=== PATIENT | female | born 1950 | race Caucasian/White ===

== ENCOUNTER 2024-11-21 15:25 | Emergency (ER) | payer MEDICARE, OTHER, SELFPAY ==
[2024-11-21 15:33] VITALS: BP 137/41; PULSE 69; RESP 19; TEMP 36.6; O2SAT 98; BMI 21.5
--- NOTE | 2024-11-21 15:38 | ED.GENADULT ---
HPI - General Adult General Chief complaint: Psychiatric Symptoms Stated complaint: Crisis Time Seen by Provider: 11/21/24 16:41 History of Present Illness ED Provider: Stevo Booth MD HPI narrative: This is a 74-year-old female with dementia and possibly underlying psychiatric disorder on Depakote and Namenda among other medications for medical issues. Her friend brought her in after she came to the house the friend called her over for help she said she was not feeling well. Friend tells me patient had a recent hospitalization and discharge to rehab, she went to [facility], for behavioral disturbance she had stopped taking all of her medications and then 1 day ?took them all?. Patient denies suicidality she does not recall that episode very well. She is been home but has not been well with poor sleep unsure whether she is taking her medications regularly. Related Data Home Medications ?Medication ?Instructions ?Recorded ?Confirmed amlodipine 5 mg tablet 5 mg PO DAILY 11/21/24 11/21/24 ascorbic acid (vitamin C) 500 mg 500 mg PO BID 11/21/24 11/21/24 tablet (Vitamin C) aspirin 81 mg chewable tablet 1 tab PO DAILY 11/21/24 11/21/24 brimonidine 0.2 % eye drops 1 drp ophthalmic (eye) BID 11/21/24 11/21/24 cholecalciferol (vitamin D3) 50 50 mcg PO DAILY 11/21/24 11/21/24 mcg (2,000 unit) tablet divalproex 250 mg tablet,extended 250 mg PO BEDTIME 11/21/24 11/21/24 release 24 hr folic acid 1 mg tablet 1 mg PO QAM 11/21/24 11/21/24 latanoprost 0.005 % eye drops 1 drp ophthalmic (eye) BEDTIME 11/21/24 11/21/24 meclizine 12.5 mg tablet 12.5 mg PO Q8H 11/21/24 11/21/24 memantine 10 mg tablet 10 mg PO BID 11/21/24 11/21/24 methotrexate sodium 2.5 mg tablet 12.5 mg PO QWEEK 11/21/24 11/21/24 omega-3 fatty acids 1,000 mg 1,000 mg PO BID 11/21/24 11/21/24 capsule polyethylene glycol 3350 17 gram 17 g PO DAILY 11/21/24 11/21/24 oral powder packet (Miralax) rosuvastatin 20 mg tablet 20 mg PO DAILY 11/21/24 11/21/24 Previous Rx's ?Medication ?Instructions ?Recorded risperidone 0.25 mg tablet 0.25 mg PO BID #60 tabs 11/25/24 Allergies Allergy/AdvReac Type Severity Reaction Status Date / Time meperidine [Demerol] Allergy Unknown Unknown Verified 11/21/24 15:39 morphine [MORPHINE] Allergy Unknown UNKNOWN Verified 11/21/24 15:39 oxycodone [Percocet] Allergy Unknown Unknown Verified 11/21/24 15:39 Sulfa (Sulfonamide Allergy Unknown UNKNOWN Verified 11/21/24 15:39 Antibiotics) [SULFA(SULFONAMIDE ANTIBIOTICS)] prednisone [PREDNISONE] AdvReac Unknown UNKNOWN Verified 11/21/24 15:39 Physical Exam ED Vital Signs: Vital Signs - 24 hr 11/24/24 22:00 11/25/24 06:13 11/25/24 06:21 Temperature 97.6 F 97.5 F Pulse Rate 67 62 61 Respiratory Rate 14 14 Blood Pressure 112/33 L 140/50 H 140/46 H Pulse Oximetry 96 97 Oxygen Delivery Method Room Air Room Air 11/25/24 06:21 11/25/24 06:21 11/25/24 13:18 Temperature 97.9 F Pulse Rate 63 69 72 Respiratory Rate 18 Blood Pressure 151/57 H 155/55 H 146/82 H Pulse Oximetry 98 Oxygen Delivery Method Room Air BMI result Body Mass Index 21.5 Const Other: EXAM: Gen: Alert, awake, well appearing, well hydrated. Head: Atraumatic Eyes: Anicteric, Normal conjunctiva. ENT: Moist mucosa, no pallor. ? Neck: Supple. Skin: ?No observable rash or bruising on exposed or examined skin Respiratory: Breathing comfortably, No distress.Clear to auscultation bilaterally, symmetric chest expansion, No wheeze, rales, ronchi. Cardiovascular: Regular rate and rhythm. No murmurs or rub. Well perfused periphery, warm extremities. No edema. ? Abdominal: No FOCAL TENDERNESS. Soft, no objective distension. No palpable masses or obvious organomegaly. ?No guarding, no rebound tenderness or other peritoneal findings. : No flank tenderness. Neuro: Alert. Gross movement of all extremities intact. ?Cranial nerves 2-12 intact. No motor deficits Psych: Calm. Cooperative. Patient acknowledges agitated behavior at home breaking things she says ?I do not know why? when asked why she did that. She denies SI or HI. She denies feeling sad or using any drugs or alcohol. MSK: No grossly visible deformity. Vital signs: See flowsheet Course Course Course Narrative: RME, this is a rapid medical exam performed by Willy Hendricks please refer to primary provider for complete H&P- 74 year old female with a history of dementia presents for evaluation of depression, agitation. She presents with a friend who reports she was destructive in the house this morning and shattering glass. The patient had a recent admission at [facility]. She has been off of her meds recently. The patient denies attempting to harm herself today. Reevaluation(s) Reevaluation #1: Time: 06:13 Date: 11/22/24 Provider: Sunil Cullen MD Patient in physician observation for psychiatric evaluation.? Patient has been in the emergency department for 14 hours. Patient has been seen by the care team and is waiting for psychiatric consult No acute events reported overnight. No current complaints. VS stable.? Patient is in bed search status/pending CARE team evaluation. Patient's medications were reconciled and I ordered the patient's outpatient regimen. Will continue to monitor. Reevaluation #2: Time: 06:17 Date: 11/23/24 Provider: Sunil Cullen MD Patient in physician observation for psychiatric evaluation.? Patient has been in the emergency department for 38 hours. Patient was seen yesterday by psychiatric nurse practitioner Elle Kurtz and diagnosed with major neurocognitive disorder and unspecified dementia. She ordered 0T assessment including MOC and ACL to assess patient's safety to live independently in the community. Patient was started on risperidone 0.25 mg p.o. b.i.d. for paranoid delusions/suspicions. Nurse practitioner Jerardo felt that the patient did not require [facility] psychiatric admission at this time. No acute events reported overnight. No current complaints. VS stable. We will await assessments. Will continue to monitor. Reevaluation #3: Time: 10:50 Date: 11/23/24 Provider: Sunil Cullen MD Patient in physician observation for psychiatric evaluation.? Patient was watching television and stood up and felt dizzy. Patient's blood pressure was 85/36. Patient had orthostatic blood pressures done: Lying: BP 100/36, heart rate 61 Sitting: BP 91/35, heart rate 63 Standing: BP 83/48, heart rate 62 The patient did not have any dizziness during her orthostatic blood pressures. Patient had 17 point drop in her systolic blood pressure but no change in her heart rate. At this time I doubt that she is orthostatic. The patient was encouraged to increase her fluid intake. Nurse reports that the patient is walking around without any difficulty. We will continue to monitor. Time: 07:23 Date: 11/24/24 Provider: Eva Paredes, DO Patient in physician observation for case management needs. No acute events reported overnight.? No current issues or complaints. VS stable this AM. Patient is pending CM eval. Will continue to monitor. Time: 11:21 Date: 11/25/24 Provider: MARLYN Sanchez Patient in physician observation for case management needs. No acute events reported overnight.? No current issues or complaints. VS stable. Case management on board and patient has been evaluated by psych, MOCA and ACL completed. Her son is coming in today to further discuss options for home care and agencies. Will continue to monitor. Time: 12:35 Date: 11/25/24 Provider: MARLYN Sanchez Physician observation ended at 12:35 Patient is being discharged home with her son. Her son is off of work for the next 1 week and will stay with her until he ranges additional care at home. Her vital signs are stable and she does not require medical admission to the hospital at this time. She is stable for discharge home with family. Medications Administered Discontinued Medications Generic Name Dose Route Start Last Admin Trade Name Josephq PRN Reason Stop Dose Admin Amlodipine Besylate 5 mg 11/22/24 09:00 11/24/24 09:08 Amlodipine Besylate 5 Mg Tablet PO Not Given DAILY LOWELL Protocol Ascorbic Acid 500 mg 11/22/24 09:11/25/24 10:35 Ascorbic Acid 500 Mg Tablet PO 500 mg BID LOWELL Administration Aspirin 81 mg 11/22/24 09:00 11/25/24 10:35 Aspirin 81 Mg Tab.Chew PO 81 mg DAILY LOWELL Administration Atorvastatin Calcium 80 mg 11/22/24 09:00 11/25/24 10:35 Atorvastatin Calcium 80 Mg Tablet PO 80 mg DAILY LOWELL Administration Brimonidine Tartrate 1 drop 11/22/24 09:00 11/25/24 10:35 Brimonidine Tartrate 0.2% Oph 5 Ml Bottle EYE-BOTH 1 drop BID LOWELL Administration Diphenhydramine HCl 25 mg 11/24/24 01:15 11/24/24 04:16 Diphenhydramine Hcl 25 Mg Capsule PO 11/24/24 01:16 Not Given ONCE ONE Divalproex Sodium 250 mg 11/22/24 21:00 11/24/24 21:27 Divalproex Sodium Er 250 Mg Tab.Er.24h PO 250 mg BEDTIME LOWELL Administration Folic Acid 1 mg 11/22/24 09:00 11/25/24 10:35 Folic Acid 1 Mg Tablet PO 1 mg DAILY LOWELL Administration Latanoprost 1 drop 11/22/24 21:00 11/24/24 22:17 Latanoprost 0.005 % Ophth Domonique 2.5 Ml Drops EYE-BOTH 1 drop BEDTIME LOWELL Administration Lorazepam 1 mg 11/24/24 01:28 11/24/24 04:16 Lorazepam 1 Mg Tablet PO 11/24/24 01:29 Not Given ONCE ONE Meclizine HCl 12.5 mg 11/22/24 07:00 11/24/24 09:15 Meclizine Hcl 12.5 Mg Tablet PO 12.5 mg Q8H LOWELL Administration Memantine 10 mg 11/22/24 09:00 11/25/24 10:35 Memantine Hcl 10 Mg Tablet PO 10 mg BID LOWELL Administration Methotrexate 12.5 mg 11/22/24 09:00 11/22/24 09:05 Methotrexate Sodium 2.5 Mg Tablet PO 12.5 mg Tu LOWELL Administration Polyethylene Glycol 17 gm 11/22/24 09:00 11/25/24 10:34 Polyethylene Glycol 3350 17 Gm Powd.Pack PO 17 gm DAILY LOWELL Administration Risperidone 0.25 mg 11/22/24 16:45 11/22/24 19:33 Risperidone 0.25 Mg Tablet PO Not Given BID LOWELL Risperidone 0.25 mg 11/22/24 21:00 11/25/24 12:11 Risperidone 0.5 Mg Tablet PO Not Given BID LOWELL Vitamin D 50 mcg 11/22/24 09:00 11/25/24 10:35 Cholecalciferol (Vitamin D3) 25 Mcg Tablet PO 50 mcg DAILY LOWELL Administration Medical Decision Making Medical Decision Making [facility] Narrative: 74-year-old female who presents after calling her friend who brought her in for evaluation. She told the friend and the friend confirmed that she had smashed windows in her home with a hammer for unclear reason. Patient recently had an evaluation was sent to rehab after an overdose that was later determined or felt not to be a suicidal attempt. She is had more erratic behavior recently. No SI or HI. She is no external signs of trauma and she is asymptomatic and otherwise comfortable and cooperative and calm here. She is more interested in discussing dinner then elaborating on her mental health. My personal impression is that the patient likely has cognitive decline and/or formal dementia as well as underlying psychiatric disorder. I do not feel she is safe at home at this point with her erratic and occasionally violent behavior and destructive behavior. I see no evidence of injury or acute medical emergency or actionable findings on her workup thus far Defer to crisis and Psychiatry for consultation Consult Healthcare Provider Management of the patient was discussed with: Behavioral Health Provider (Crisis we will consult psychiatry) Lab Data [facility] Lab Attestation statement: I reviewed the patient's lab results. 11/21/24 21:05 11/22/24 20:02 Labs: Lab Results 11/21/24 11/21/24 11/22/24 Range/Units 16:48 21:05 20:02 WBC 9.2 (4.8-10.8) X10*3/uL RBC 3.74 L (4.20-5.50) X10*6/uL Hgb 12.1 (12.0-16.0) g/dl Hct 34.8 L (37.0-47.0) % MCV 93.0 (80.0-98.0) fL MCH 32.4 (27.0-33.0) pg MCHC 34.8 (31.0-35.0) g/dl RDW 17.3 H (11.0-16.0) % Plt Count 307 (160-400) X10*3/uL MPV 9.2 L (9.4-12.3) fL Immature Gran % (Auto) 0.3 (0.0-0.4) % Neut % (Auto) 65.8 (45-73) % Lymph % (Auto) 24.3 (20-40) % [place] % (Auto) 7.0 (2-11) % Eos % (Auto) 1.3 (0-4) % Baso % (Auto) 1.3 (0-2) % Lymph # (Auto) 2.2 (1.2-4.9) X10*3/uL Hardin # (Auto) 0.6 (0.1-1.2) X10*3/uL Eos # (Auto) 0.1 (0.0-0.4) X10*3/uL Baso # (Auto) 0.1 (0.0-0.2) X10*3/uL Abs Immat Gran (auto) 0.03 (0.00-0.03) X10*3/uL Absolute Neuts (auto) 6.0 (2.0-8.3) x10*3/uL Absolute Nucleated RBC 0.000 (0.0-0.012) X10*3/uL Nucleated RBC % (auto) 0.0 (0.0-0.2) /100WBC Sodium 143 143 (135-145) mmol/L Potassium 3.9 3.9 (3.3-5.1) mmol/L Chloride 107 106 (96-108) mmol/L Carbon Dioxide 28 29 (22-29) mmol/L Anion Gap 12 12 (12-20) BUN 21 H 25 H (9-16) mg/dL Creatinine 0.81 0.73 (0.5-1.4) mg/dL Estim Creat Clear Calc 36.0 40.0 Estimated GFR > 60 > 60 Random Glucose 121 H 109 (60-115) mg/dL Calcium 8.9 9.5 D (8.4-10.2) mg/dL Total Bilirubin 0.2 0.3 (0.0-1.0) mg/dL AST 36 H 29 (5-31) U/L ALT 89 H 75 H (0-31) U/L Alkaline Phosphatase 64 65 (39-117) U/L Ammonia 25 (13-55) umol/L Total Protein 5.9 L 6.4 L (6.5-8.0) g/dL Albumin 4.0 4.3 (3.5-5.0) g/dL Urine Color Yellow Urine Appearance Clear Urine pH 8.5 (5.0-9.0) Ur Specific [place] <= 1.005 (1.005-1.025) Urine Protein Negative (Neg-Trace) mg/dL Urine Glucose (UA) Negative (Negative) mg/dL Urine Ketones Negative (Negative) mg/dL Urine Blood Negative (Negative) Urine Nitrite Negative (Negative) Ur Leukocyte Esterase Negative (Negative) Urine RBC 0-2 (0-2) /HPF Urine WBC 0-5 (0-5) /HPF Ur Squamous Epith Cells 0-2 (0-2) /HPF Urine Bacteria None Seen (None Seen) Hyaline Casts 0-2 (0-2) /LPF Salicylates < 5.0 L (15-30) mg/dL Urine Opiates Screen Not Detected (Not Detect) Ur Buprenorphine Scrn Not Detected (Not Detect) ng/mL Ur Oxycodone Screen Not Detected (Not Detect) ng/mL Urine Methadone Screen Not Detected (Not Detect) ng/mL Urine Fentanyl Screen Not Detected (Not Detect) Acetaminophen < 3 (<30) mcg/mL Ur Barbiturates Screen Not Detected (Not Detect) Ur Phencyclidine Scrn Not Detected (Not Detect) Ur Amphetamines Screen Not Detected (Not Detect) U Benzodiazepines Scrn Not Detected (Not Detect) Urine Cocaine Screen Not Detected (Not Detect) U Marijuana (THC) Screen Not Detected (Not Detect) Ethyl Alcohol < 10 mg/dL Discharge Plan Discharge Clinical Impression: Major neurocognitive disorder Patient Disposition: Home, Self-Care Instructions: Dementia (ED) Additional Instructions: Lab workup in the ER was unremarkable. Continue taking all your medications as prescribed. Per psychiatry recommendations we are adding risperidone 0.25 mg 2 times a day for suspiciousness and paranoia. This has been sent to your pharmacy. Follow-up with your doctor as soon as possible If you develop new or worsening symptoms call 911 or come back to the ER for further evaluation. Prescriptions: New risperidone 0.25 mg tablet 0.25 mg PO BID Qty: 60 0RF No Action amlodipine 5 mg tablet 5 mg PO DAILY aspirin 81 mg tablet,chewable 1 tab PO DAILY folic acid 1 mg tablet 1 mg PO QAM latanoprost 0.005 % drops 1 drp ophthalmic (eye) BEDTIME meclizine 12.5 mg tablet 12.5 mg PO Q8H memantine 10 mg tablet 10 mg PO BID methotrexate sodium 2.5 mg tablet 12.5 mg PO QWEEK rosuvastatin 20 mg tablet 20 mg PO DAILY divalproex 250 mg tablet extended release 24 hr 250 mg PO BEDTIME cholecalciferol (vitamin D3) 50 mcg (2,000 unit) Tablet 50 mcg PO DAILY polyethylene glycol 3350 [Miralax] 17 gram Powder In Packet 17 g PO DAILY brimonidine 0.2 % Drops 1 drp OPHTHALMIC (EYE) BID Rx Instructions: administer approximately 8 hours apart ascorbic acid (vitamin C) [Vitamin C] 500 mg Tablet 500 mg PO BID omega-3 fatty acids 1,000 mg Capsule 1,000 mg PO BID Referrals: Suzanne Benjamin [Outside] Interventions: [place]-Suicide Risk Severity Scale Last Done: 11/24/24 20:00 ED Discharge Assessment Last Done: 11/25/24 13:18 Discharge Date/Time: 11/25/24 13:26 Print Language: Frisian
[2024-11-21 16:32] VITALS: BP 149/78; PULSE 69; RESP 16; TEMP 36.5; O2SAT 98
--- NOTE | 2024-11-21 16:39 | PC.NURSE ---
Patient is a 74 year old female with a history of dementia presents for evaluation of depression, agitation. She presents with a friend who reports she was destructive in the house this morning and shattering glass. The patient had a recent admission at [facility]. and has been off of her meds. The patient denies attempting to harm herself today. Patient is alert and oriented. Patient is unsure why she broke the windows in her home. Communication sl disorganized. Respirations even and non-labored. Abdomen soft, non-tender with positive bowel sounds. Positive pedal pulses with no edema.
[2024-11-21 17:02] LABS: Appearance Urine Clear; Color Urine Yellow; Glucose Urine UA Negative (Negative); Leukocyte Esterase Urine Negative (Negative); Nitrite Urine Negative (Negative); PH 8.5 (5.0-9.0); Specific Gravity - Urine <= 1.005 (1.005-1.025); Urine Blood Negative (Negative); Urine Ketones Negative (Negative); Urine Protein Negative (Neg-Trace)
[2024-11-21 17:05] LABS: Bacteria Urine None Seen (None Seen); Hyaline Casts Urine 0-2 /LPF (0-2); RBC Urine 0-2 /HPF (0-2); Squamous Epithelial Cell Urine 0-2 /HPF (0-2); WBC Urine 0-5 /HPF (0-5)
[2024-11-21 17:11] LABS: Amphetamine Screen Urine Not Detected (Not Detect); Barbiturates, Urine Not Detected (Not Detect); Benzodiazepines Screen Urine Not Detected (Not Detect); Buprenorphine Scr Not Detected (Not Detect); Cannabinoid Screen Urine Not Detected (Not Detect); Cocaine Screen Urine Not Detected (Not Detect); Fentanyl, urine Not Detected (Not Detect); Methadone Screen, Urine Not Detected (Not Detect); Opiate Screen Urine Not Detected (Not Detect); Oxycodone Screen Urine Not Detected (Not Detect); Phencyclidine Screen Urine Not Detected (Not Detect)
--- NOTE | 2024-11-21 17:44 | PC.NURSE ---
Care team at the bedside
--- OUTSIDE RECORDS SUMMARY | 2024-11-21 17:44 | XMS_ITS | Patient Health Record ---
Author Organization [facility] [address] Address [address] [place] [address] Care Team Providers Care Yardage Caller Name Role Phone DRISS TURK Unavailable [phone] Allergies Allergen (clinical drug ingredient) Drug/Non Drug Allergy documented on EMR Reaction Allergy Type Onset Date Status prednisone Prednisone Unknown Drug Allergy Activ e Substance with sulfonamide structure and antibacterial mechanism of action (substance) Sulfa Antibiotics Unknown Drug Allergy Active Results Component Value Reference Range Notes Crystal John LP Default Reviewed date:05/25/2024 08:07:37 AM Interpretation: Performing Lab:[facility], [address] [facility], Phone - [phone], Director - Jay Notes/Report: Crystal John LP Default A hand-written panel/profile was received from your office. In accordance with the [facility] Ambiguous Test Code Policy dated December 2002, we have completed your order by using the closest currently or formerly recognized AMA panel. We have assigned Lipid Panel, Test Code #[id number] to this request. If this is not the testing you wished to receive on this specimen, please contact the [facility] Client Inquiry/Technical Services Department to clarify the test order. We appreciate your business. CBC/Diff Ambiguous Default Reviewed date:05/25/2024 08:07:37 AM Interpretation: Performing Lab:[facility], [address] [facility], [place], Phone - [phone], Director - Jay Notes/Report: WBC 8.3 3.4-10.8 x10E3/uL RBC 4.74 3.77-5.28 x10E6/uL Hemoglobin 15.4 11.1-15.9 g/dL Hematocrit 46.8 34.0-46.6 % MCV 99 79-97 fL MCH 32.5 26.6-33.0 pg MCHC 32.9 31.5-35.7 g/dL RDW 13.6 11.7-15.4 % Platelets 258 150-450 x10E3/uL Neutrophils 69 Not Estab. % Lymphs 23 Not Estab. % Monocytes 6 Not Estab. % Eos 1 Not Estab. % Basos 1 Not Estab. % Neutrophils (Absolute) 5.8 1.4-7.0 x10E3/uL Lymphs (Absolute) 1.9 0.7-3.1 x10E3/uL Monocytes(Absolute) 0.5 0.1-0.9 x10E3/uL Eos (Absolute) 0.1 0.0-0.4 x10E3/uL Baso (Absolute) 0.1 0.0-0.2 x10E3/uL Immature Granulocytes 0 Not Estab. % Immature Grans (Abs) 0.0 0.0-0.1 x10E3/uL Hematology Comments: A hand-written panel/profile was received from your office. In accordance with the [facility] Ambiguous Test Code Policy dated December 2002, we have assigned CBC with Differential/Platelet, Test Code #[id number] to this request. If this is not the testing you wished to receive on this specimen, please contact the [facility] Client Inquiry/ Technical Services Department to clarify the test order. We appreciate your business. Comp. Metabolic Panel ([id number] Reviewed date:05/25/2024 08:05:48 AM Interpretation: Performing Lab:[facility], [address], [place], Phone - [phone], Director - Jay Notes/Report: Glucose 109 70-99 mg/dL BUN 19 8-27 mg/dL Creatinine 0.89 0.57-1.00 mg/dL eGFR 67 >59 mL/min/1.73 BUN/Creatinine Ratio 21 12-28 Sodium 141 134-144 mmol/L Potassium 4.6 3.5-5.2 mmol/L Chloride 102 96-106 mmol/L Carbon Dioxide, Total 22 20-29 mmol/L Calcium 9.8 8.7-10.3 mg/dL Protein, Total 6.6 6.0-8.5 g/dL Albumin 4.4 3.8-4.8 g/dL Globulin, Total 2.2 1.5-4.5 g/dL Bilirubin, Total 0.4 0.0-1.2 mg/dL Alkaline Phosphatase 83 44-121 IU/L AST (SGOT) 23 0-40 IU/L ALT (SGPT) 19 0-32 IU/L Lipid Panel-[id number] Reviewed date:05/25/2024 08:07:37 AM Interpretation: Performing [facility], [address] [place] [address], Phone - [phone], Director - Jay Notes/Report: Cholesterol, Total 247 100-199 mg/dL Triglycerides 158 0-149 mg/dL HDL Cholesterol 66 >39 mg/dL VLDL Cholesterol Balta 28 5-40 mg/dL LDL Chol Calc (NIH) 153 0-99 mg/dL Vitamin D, 63-Wtiirmm-[id number] Reviewed date:05/25/2024 08:07:37 AM Interpretation: Performing Lab[facility], [address] [place] [address], Phone - [phone], Director - Jay Notes/Report: Vitamin D, 25-Hydroxy 50.7 30.0-100.0 ng/mL Vitamin D deficiency has been defined by the [place] of Medicine and an Endocrine Society practice guideline as a level of serum 25-OH vitamin D less than 20 ng/mL (1,2). The Endocrine Society went on to further define vitamin D insufficiency as a level between 21 and 29 ng/mL (2). 1. IOM ([place] of Medicine). 2010. Dietary reference intakes for calcium and D. [place]: The National Academies Press. 2. Ashley MF, Rajendra NC, Telly BENJAMIN, et al. Evaluation, treatment, and prevention of vitamin D deficiency: an Endocrine Society clinical practice guideline. JCEM. 2010; 96(7):1911-30. Triiodothyronine (T3), Free- [id number] Reviewed date:05/25/2024 08:07:37 AM Interpretation: Performing [facility], [address] [place] [address], [place], Phone - [phone], Director - Jay Notes/Report: Triiodothyronine (T3), Free 2.4 2.0-4.4 pg/mL Crystal John CMP14 Default A hand-written panel/profile was received from your office. In accordance with the [facility] Ambiguous Test Code Policy dated December 2002, we have completed your order by using the closest currently or formerly recognized AMA panel. We have assigned Comprehensive Metabolic Panel (14), Test Code #[id number] to this request. If this is not the testing you wished to receive on this specimen, please contact the [facility] Client Inquiry/Technical Services Department to clarify the test order. We appreciate your business. TSH-[id number] Reviewed date:05/25/2024 08:07:37 AM Interpretation: Performing Lab:[address], Phone - [phone], Director - Jay Notes/Report: TSH 2.720 0.450-4.500 uIU/mL Urinalysis, Complete-[id number] Reviewed date:05/25/2024 08:05:28 AM Interpretation: Performing Lab:[address], Phone - [phone], Director - Jay Notes/Report: Specific [place] 1.022 1.005-1.030 pH 6.5 5.0-7.5 Urine-Color Yellow Yellow Appearance Clear Clear WBC Esterase 1+ Negative Protein Trace Negative/Trace Glucose Negative Negative Ketones Trace Negative Occult Blood Negative Negative Bilirubin Negative Negative Urobilinogen,Semi-Qn 0.2 0.2-1.0 mg/dL Nitrite, Urine Negative Negative Microscopic Examination See below: Micr oscopic was indicated and was performed. WBC 0-5 0 - 5 /hpf RBC 0-2 0 - 2 /hpf Epithelial Cells (non renal) 0-10 0 - 10 /hpf Casts None seen None seen /lpf Bacteria None seen None seen/Few Thyroxine (T4) Free, Direct- [id number] Reviewed date:05/25/2024 08:07:37 AM Interpretation: Performing Lab:[address], Phone - [phone], Director - Alokdrcory Notes/Report: T4,Free(Direct) 1.01 0.82-1.77 ng/dL Hemoglobin F1w-[id number] Reviewed date:05/25/2024 08:07:37 AM Interpretation: Performing Lab:[address], Phone - [phone], Director - Jay Notes/Report: Hemoglobin A1c 6.4 4.8-5.6 % . Prediabetes: 5.7 - 6.4 Diabetes: >6.4 Glycemic control for adults with diabetes: <7.0 PPC Hemoglobin A1C Reviewed date:09/08/2024 02:47:30 PM Interpretation:5.7% Performing Lab: Notes/Report: 5.7% Reason For Referral Reason colonoscopy. due 2024 Diagnosis 1 Colon cancer screeni ng (Z12.11) Referral Organization [facility] [address] Referring Provider First Name DRISS Referring Provider Last Name BURKE Referring Provider Speciality Internal M edicine Referred Provider Specialty Gastroentero logy Clinical Notes WillWilly guevaralisa 08/14 12:53:39 PM > faxed pt info to [facility] gi. p) [phone] f) [phone], Logan Ya 09/28/2024 01:29:01 PM > Spoke with Nguyen. She confirmed receipt of referral and patient is due for colonoscopy in May. Referral Priority Routine Medications Medication SIG (Take, Route, Frequency, Duration) Notes Start Date End Date Status Vitamin D3 Active Zinc Active Latanoprost 0.005 % 1 drop into affected eye in the evening Ophthalmic Once a day Active Biotin Active Brimonidine Tartrate 0.2 % 1 drop into a ffected eye Ophthalmic every 8 hrs Active [place] 3 Active Methotrexate Active Multivitamin Active Calcium Magnesium Ac tive Folic Acid Active Vitamin C Active Immunizations Vaccine Route Administration Date Status Comme nts Tdap IM Intramuscular 04/04/2024 Administered Social History Tobacco Use: Social History Observation Description Date Details (start date - stop date) Current Smoker NA - NA Tobacco Use/Smoking Question Answer Notes Are you a current smoker Problems Problem Type SNOMED Code ICD Code Onset Dates Problem Status W/U Status Risk Notes Problem Lipid screening (361132020) Encounter for screening for lipoid disorders (Z13.220) Active confirmed Problem Colon cancer screening (717381318) Colon cancer screening (Z12.11) Active confirmed Problem Adult health examination (650632331) Adult general medical exam (Z00.00) Active confirmed Problem Vitamin D deficiency (19264009) Vitamin D deficiency (E55.9) Active confirmed Problem Diabetes mellitus screening (285494982) Diabetes mellitus screening (Z13.1) Active confirmed Problem 69250156 Age-related cataract of both eyes, unspecified age-related cataract type (H25.9) Active confirmed Problem 12585729 Rheumatoid arthritis, involving unspecified site, unspecified whether rheumatoid factor present (M06.9) Active confirmed Problem 04673039 Chronic glaucoma (H40.1190) Active confirmed Problem 64838277 Tobacco dependence (F17.200) Active confirmed Vital Signs Heart Rate 69 /min 09/08/2024 Oximetry 95 % 09/08/2024 Blood pressure diastolic 78 mm Hg 09/08/2024 Height 57 in 09/08/2024 Blood pressure systolic 128 mm Hg 09/08/2024 Weight 102.4 lbs 09/08/2024 BMI 22.16 kg/m2 09/08/2024 Encounters Encounter Location Date Provider Diagnosis [facility] [address] [place] [address] 04/04/2024 DRISS TURK Chronic glaucoma H40.1190 ; Age-related cataract of both eyes, unspecified age-related cataract type H25.9 ; Rheumatoid arthritis of both wrists, unspecified whether rheumatoid factor present M06.9 and Encounter for immunization Z23 [facility] [address] [place] [address] 05/30/2024 DRISS TURK Age-related cataract of both eyes, unspecified age-related cataract type H25.9 ; General medical exam Z00.00 ; Primary open angle glaucoma (POAG) of both eyes, moderate stage H40.1132 ; Mild dementia with other behavioral disturbance, unspecified dementia type F03.A18 ; Rheumatoid arthritis involving shoulder, unspecified laterality, unspecified whether rheumatoid factor present M06.9 ; Depression screening Z13.31 and Advanced directives, counseling/discussion Z71.[address] [facility] [address] [place] [address] 09/08/2024 DRISS TURK Prediabetes R73.03 ; Chronic glaucoma H40.1190 ; Age-related cataract of both eyes, unspecified age-related cataract type H25.9 ; Rheumatoid arthritis, involving unspecified site, unspecified whether rheumatoid factor present M06.9 ; Tobacco dependence F17.200 and Mild dementia with other behavioral disturbance, unspecified dementia type F03.A18 [facility] [address] [place] [address] 02/25/2024 DRISS TURK [facility] [address] [place] [address] 03/10/[address]URK [facility] [address] [place] [address] 09/28/2024 DRISS TURK [facility] [address] [place] [address] 11/14/2024 DRISS SANTOUPA Assessments Encounter Date Diagnosis (ICD Code) Assessment Notes Treatment Notes Treatment Clinical Notes Section Notes 05/30/2024 General medical exam (ICD-10 - Z00.00) María is a pleasant 74-year-old female present today for MWV. Past medical history includes open-angle glaucoma, bilateral cataracts, dementia with behavioral symptoms and rheumatoid arthritis. #Cataracts: Patient followed by [facility] and had discussed with hazardous waste remover the option of cataract removal. Patient interested in this procedure in spring 2024. #Open-angle glaucoma: Followed by [facility]. Patient recently seen and advised to continue current regimen of latanoprost 1 drop once a day in the evening and brimonidine 0.2% every 8 hours. #Dementia: Patient followed by neurology at [facility]. Patient reports she has been on these medications for the past 10 years. Patient reports 10 years ago she was going through a stressful divorce and her was an alcoholic. Patient believes she had a nervous breakdown as opposed to the development of dementia. Neurologist recommended to continue current regimen of memantine 10 mg twice daily and divalproex sodium to 50 twice daily. Patient would like a reevaluation of dementia at neurology visit. Patient lives independently and completes all activities of daily living. Patient drives and reports that family members around her have no concern for memory loss. Patient has 6 month follow-up with neurology and will await further recommendations. #Rheumatoid arthritis: Patient followed by roundhouse firer/fireman at [facility]. Has 6-month follow-up. Currently on methotrexate and folic acid. Has arthritis present in shoulders and bilateral hands. Patient is asymptomatic while taking medication. Has been on this medication regimen for the past 8 years. Plan to continue as prescribed. #Prevention: Up-to-date on influenza, COVID, Tdap (2023) and shingles vaccinations. Last mammogram was 4 years ago. Colonoscopy performed 05/23/2022 at [facility] revealing 10 mm polyp in the transverse colon, 20 mm polyp found in the ascending colon, few small mouth diverticula in the sigmoid colon and internal hemorrhoids. Polyps successfully removed. Plan to repeat colonoscopy in 3 years for surveillance. Patient underwent total hysterectomy, no longer requiring Pap smears. Patient endorses tobacco use and smokes currently half a pack of cigarettes daily. Patient denies ever receiving a low-dose CT scan. Given tobacco history, highly recommend patient obtains low-dose CT scan. Discussed labs with patient which were all within normal limits aside from what was addressed above. PHQ-9 completed. Plan to follow-up in 3 months. Discussed HCP. Plan to obtain health care proxy at 3 month follow up. Patient is here for a Medicare wellness visit. Complete paperwork was reviewed and updated and has been filed and scanned. Depression screen completed. Alcohol AUDIT SCREEN completed. Obesity screen completed. Cardiovascular risk stratification screen completed. Cognition assessed and within reasonable limits Fall risk assessed. Discussed healthcare proxy. Discussed [place] order for life sustaining treatment, end-of-life issues, intubation and resuscitation dialysis artificial nutrition and hydration is appropriate. We discussed [place] order for life sustaining treatment and healthcare proxy. We discussed need for resuscitation, intubation, ventilation, need for dialysis, short-term versus long-term, nutrition, IV nutrition and hydration. Total time spent was 45 minutes with greater than 50% spent on counseling and coordinating care 05/30/2024 Age-related cataract of both eyes, unspecified age-related cataract type (ICD-10 - H25.9) María is a pleasant 74-year-old female present today for MWV. Past medical history includes open-angle glaucoma, bilateral cataracts, dementia with behavioral symptoms and rheumatoid arthritis. #Cataracts: Patient followed by [facility] and had discussed with hazardous waste remover the option of cataract removal. Patient interested in this procedure in spring 2024. #Open-angle glaucoma: Followed by [facility]. Patient recently seen and advised to continue current regimen of latanoprost 1 drop once a day in the evening and brimonidine 0.2% every 8 hours. #Dementia: Patient followed by neurology at [facility]. Patient reports she has been on these medications for the past 10 years. Patient reports 10 years ago she was going through a stressful divorce and her was an alcoholic. Patient believes she had a nervous breakdown as opposed to the development of dementia. Neurologist recommended to continue current regimen of memantine 10 mg twice daily and divalproex sodium to 50 twice daily. Patient would like a reevaluation of dementia at neurology visit. Patient lives independently and completes all activities of daily living. Patient drives and reports that family members around her have no concern for memory loss. Patient has 6 month follow-up with neurology and will await further recommendations. #Rheumatoid arthritis: Patient followed by roundhouse firer/fireman at [facility] in [place]. Has 6-month follow-up. Currently on methotrexate and folic acid. Has arthritis present in shoulders and bilateral hands. Patient is asymptomatic while taking medication. Has been on this medication regimen for the past 8 years. Plan to continue as prescribed. #Prevention: Up-to-date on influenza, COVID, Tdap (2023) and shingles vaccinations. Last mammogram was 4 years ago. Colonoscopy performed 05/23/2022 at [facility] revealing 10 mm polyp in the transverse colon, 20 mm polyp found in the ascending colon, few small mouth diverticula in the sigmoid colon and internal hemorrhoids. Polyps successfully removed. Plan to repeat colonoscopy in 3 years for surveillance. Patient underwent total hysterectomy, no longer requiring Pap smears. Patient endorses tobacco use and smokes currently half a pack of cigarettes daily. Patient denies ever receiving a low-dose CT scan. Given tobacco history, highly recommend patient obtains low-dose CT scan. Discussed labs with patient which were all within normal limits aside from what was addressed above. PHQ-9 completed. Plan to follow-up in 3 months. Discussed HCP. Plan to obtain health care proxy at 3 month follow up. Patient is here for a Medicare wellness visit. Complete paperwork was reviewed and updated and has been filed and scanned. Depression screen completed. Alcohol AUDIT SCREEN completed. Obesity screen completed. Cardiovascular risk stratification screen completed. Cognition assessed and within reasonable limits Fall risk assessed. Discussed healthcare proxy. Discussed [place] order for life sustaining treatment, end-of-life issues, intubation and resuscitation dialysis artificial nutrition and hydration is appropriate. We discussed [place] order for life sustaining treatment and healthcare proxy. We discussed need for resuscitation, intubation, ventilation, need for dialysis, short-term versus long-term, nutrition, IV nutrition and hydration. Total time spent was 45 minutes with greater than 50% spent on counseling and coordinating care 04/04/2024 Age-related cataract of both eyes, unspecified age-related cataract type (ICD-10 - H25.9) #Rheumatoid arthritis: Patient followed by rheumatology at [facility]. Has follow-up every 6 months. Currently taking methotrexate and folic acid. States arthritis has been present in shoulders and bilateral hands prior to starting medication. Currently denies any boggy or tenderness to joints. States she has been on medication for the past 8 years for this. plan to obtain records from roundhouse firer/fireman. #Cataracts #glaucoma: Patient is followed by [facility]. Has routine eye exams. Patient was recommended by eye doctor to undergo cataract removal surgery. States that she discussed performing this surgery in the spring 2024. Plan to continue latanoprost and brimonidine as prescribed. # Prevention: Patient up-to-date on influenza, COVID, shingles today. Plan to administer tetanus today. Last mammogram was 4 years ago. Will try to obtain records. Patient has had a total hysterectomy and no longer receives Pap smears. Plan to obtain baseline labs prior to next visit. Plan to schedule CPE in 6 to 8 weeks. Will consider low-dose CT due to patient's smoking history. Will try to obtain records from last primary care. Will try to get neurology records to understand more history. All questions answered to patients satisfaction. Patient verbalized understanding of diagnosis and treatments explained. To call sooner prior to next visit it any questions/concerns arise. Case discussed with collaborating physician Dr. Cornejo who reviewed the assessment and plan. Chart, medications, labs, vital signs reviewed. Dictation was accomplished with the use of [employer] voice recognition software, prone to medical misidentifications and grammatical errors. This is unintentional and the practitioner does try to identify and correct these, but some could still be present. Please do not hesitate to contact practitioner for clarification. 04/04/2024 Chronic glaucoma (ICD-10 - H40.1190) #Rheumatoid arthritis: Patient followed by rheumatology at [facility]. Has follow-up every 6 months. Currently taking methotrexate and folic acid. States arthritis has been present in shoulders and bilateral hands prior to starting medication. Currently denies any boggy or tenderness to joints. States she has been on medication for the past 8 years for this. plan to obtain records from roundhouse firer/fireman. #Cataracts #glaucoma: Patient is followed by [facility]. Has routine eye exams. Patient was recommended by eye doctor to undergo cataract removal surgery. States that she discussed performing this surgery in the spring 2024. Plan to continue latanoprost and brimonidine as prescribed. # Prevention: Patient up-to-date on influenza, COVID, shingles today. Plan to administer tetanus today. Last mammogram was 4 years ago. Will try to obtain records. Patient has had a total hysterectomy and no longer receives Pap smears. Plan to obtain baseline labs prior to next visit. Plan to schedule CPE in 6 to 8 weeks. Will consider low-dose CT due to patient's smoking history. Will try to obtain records from last primary care. Will try to get neurology records to understand more history. All questions answered to patients satisfaction. Patient verbalized understanding of diagnosis and treatments explained. To call sooner prior to next visit it any questions/concerns arise. Case discussed with collaborating physician Dr. Cornejo who reviewed the assessment and plan. Chart, medications, labs, vital signs reviewed. Dictation was accomplished with the use of [employer] voice recognition software, prone to medical misidentifications and grammatical errors. This is unintentional and the practitioner does try to identify and correct these, but some could still be present. Please do not hesitate to contact practitioner for clarification. 09/08/2024 Prediabetes (ICD-10 - R73.03) María is a pleasant 74-year-old female present today for 3-month follow-up. #Cataracts: Patient followed by [facility] and had discussed with hazardous waste remover the option of cataract removal. Patient interested in this procedure in . #Open-angle glaucoma: Followed by [facility]. Patient recently seen and advised to continue current regimen of latanoprost 1 drop once a day in the evening and brimonidine 0.2% every 8 hours. #Dementia: Followed by neurology at [facility]. Has been on memantine and divalproex daily. Patient disagrees regarding diagnosis. Believes she had a nervous breakdown as opposed to the development of dementia at the time. Patient has since discontinued both medications and neurology is aware. Patient lives independently and completes all activities of daily living. Patient drives and reports that family members surrounding her have no concern regarding memory loss. Will try to obtain updated neurology notes. #Rheumatoid arthritis: Followed by roundhouse firer/fireman at [facility]. Patient seen every 6 months. Managed on methotrexate and folic acid. # Tobacco dependence: Underwent low-dose CT scan for lung cancer screening approximately a month ago, still waiting for results. # Healthcare proxy discussed today and patient began filling out form, but will complete at home as she does not have her son's address or telephone number at hand. Will return and we will scan for our files. #Colonoscopy: Performed 05/2022 and found to have polyps with plan to repeat in 3 years, 2024. Will place order today for colonoscopy to be performed and scheduled for 05/2025. #Prediabetes: A1c on 05/23/2024 of 6.4%. Patient advised to limit sugar and refined carbohydrates. Repeat A1c today in office of 5.7%. Will follow-up in 4 months and repeat A1c and blood work. #Follow-up in 4 months and repeat blood work. All questions answered to patients satisfaction. Patient verbalized understanding of diagnosis and treatments explained. To call sooner prior to next visit it any questions/concerns arise. Case discussed with collaborating physician Dr. Cornejo who reviewed the assessment and plan. Chart, medications, labs, vital signs reviewed. Dictation was accomplished with the use of [employer] voice recognition software, prone to medical misidentifications and grammatical errors. This is unintentional and the practitioner does try to identify and correct these, but some could still be present. Please do not hesitate to contact practitioner for clarification. 09/08/2024 Chronic glaucoma (ICD-10 - H40.1190) María is a pleasant 74-year-old female present today for 3-month follow-up. #Cataracts: Patient followed by [facility] and had discussed with hazardous waste remover the option of cataract removal. Patient interested in this procedure in . #Open-angle glaucoma: Followed by [facility]. Patient recently seen and advised to continue current regimen of latanoprost 1 drop once a day in the evening and brimonidine 0.2% every 8 hours. #Dementia: Followed by neurology at [facility]. Has been on memantine and divalproex daily. Patient disagrees regarding diagnosis. Believes she had a nervous breakdown as opposed to the development of dementia at the time. Patient has since discontinued both medications and neurology is aware. Patient lives independently and completes all activities of daily living. Patient drives and reports that family members surrounding her have no concern regarding memory loss. Will try to obtain updated neurology notes. #Rheumatoid arthritis: Followed by roundhouse firer/fireman at [facility]. Patient seen every 6 months. Managed on methotrexate and folic acid. # Tobacco dependence: Underwent low-dose CT scan for lung cancer screening approximately a month ago, still waiting for results. # Healthcare proxy discussed today and patient began filling out form, but will complete at home as she does not have her son's address or telephone number at hand. Will return and we will scan for our files. #Colonoscopy: Performed 05/2022 and found to have polyps with plan to repeat in 3 years, 2024. Will place order today for colonoscopy to be performed and scheduled for 05/2025. #Prediabetes: A1c on 05/23/2024 of 6.4%. Patient advised to limit sugar and refined carbohydrates. Repeat A1c today in office of 5.7%. Will follow-up in 4 months and repeat A1c and blood work. #Follow-up in 4 months and repeat blood work. All questions answered to patients satisfaction. Patient verbalized understanding of diagnosis and treatments explained. To call sooner prior to next visit it any questions/concerns arise. Case discussed with collaborating physician Dr. Cornejo who reviewed the assessment and plan. Chart, medications, labs, vital signs reviewed. Dictation was accomplished with the use of [employer] voice recognition software, prone to medical misidentifications and grammatical errors. This is unintentional and the practitioner does try to identify and correct these, but some could still be present. Please do not hesitate to contact practitioner for clarification. 09/08/2024 Age-related cataract of both eyes, unspecified age-related cataract type (ICD-10 - H25.9) María is a pleasant 74-year-old female present today for 3-month follow-up. #Cataracts: Patient followed by [facility] and had discussed with hazardous waste remover the option of cataract removal. Patient interested in this procedure in . #Open-angle glaucoma: Followed by [facility]. Patient recently seen and advised to continue current regimen of latanoprost 1 drop once a day in the evening and brimonidine 0.2% every 8 hours. #Dementia: Followed by neurology at [facility]. Has been on memantine and divalproex daily. Patient disagrees regarding diagnosis. Believes she had a nervous breakdown as opposed to the development of dementia at the time. Patient has since discontinued both medications and neurology is aware. Patient lives independently and completes all activities of daily living. Patient drives and reports that family members surrounding her have no concern regarding memory loss. Will try to obtain updated neurology notes. #Rheumatoid arthritis: Followed by roundhouse firer/fireman at [facility]. Patient seen every 6 months. Managed on methotrexate and folic acid. # Tobacco dependence: Underwent low-dose CT scan for lung cancer screening approximately a month ago, still waiting for results. # Healthcare proxy discussed today and patient began filling out form, but will complete at home as she does not have her son's address or telephone number at hand. Will return and we will scan for our files. #Colonoscopy: Performed 05/2022 and found to have polyps with plan to repeat in 3 years, 2024. Will place order today for colonoscopy to be performed and scheduled for 05/2025. #Prediabetes: A1c on 05/23/2024 of 6.4%. Patient advised to limit sugar and refined carbohydrates. Repeat A1c today in office of 5.7%. Will follow-up in 4 months and repeat A1c and blood work. #Follow-up in 4 months and repeat blood work. All questions answered to patients satisfaction. Patient verbalized understanding of diagnosis and treatments explained. To call sooner prior to next visit it any questions/concerns arise. Case discussed with collaborating physician Dr. Cornejo who reviewed the assessment and plan. Chart, medications, labs, vital signs reviewed. Dictation was accomplished with the use of [employer] voice recognition software, prone to medical misidentifications and grammatical errors. This is unintentional and the practitioner does try to identify and correct these, but some could still be present. Please do not hesitate to contact practitioner for clarification. 04/04/2024 Rheumatoid arthritis of both wrists, unspecified whether rheumatoid factor present (ICD-10 - M06.9) #Rheumatoid arthritis: Patient followed by rheumatology at [facility] in [place]. Has follow-up every 6 months. Currently taking methotrexate and folic acid. States arthritis has been present in shoulders and bilateral hands prior to starting medication. Currently denies any boggy or tenderness to joints. States she has been on medication for the past 8 years for this. plan to obtain records from roundhouse firer/fireman. #Cataracts #glaucoma: Patient is followed by [facility]. Has routine eye exams. Patient was recommended by eye doctor to undergo cataract removal surgery. States that she discussed performing this surgery in the spring 2024. Plan to continue latanoprost and brimonidine as prescribed. # Prevention: Patient up-to-date on influenza, COVID, shingles today. Plan to administer tetanus today. Last mammogram was 4 years ago. Will try to obtain records. Patient has had a total hysterectomy and no longer receives Pap smears. Plan to obtain baseline labs prior to next visit. Plan to schedule CPE in 6 to 8 weeks. Will consider low-dose CT due to patient's smoking history. Will try to obtain records from last primary care. Will try to get neurology records to understand more history. All questions answered to patients satisfaction. Patient verbalized understanding of diagnosis and treatments explained. To call sooner prior to next visit it any questions/concerns arise. Case discussed with collaborating physician Dr. Cornejo who reviewed the assessment and plan. Chart, medications, labs, vital signs reviewed. Dictation was accomplished with the use of [employer] voice recognition software, prone to medical misidentifications and grammatical errors. This is unintentional and the practitioner does try to identify and correct these, but some could still be present. Please do not hesitate to contact practitioner for clarification. 05/30/2024 Primary open angle glaucoma (POAG) of both eyes, moderate stage (ICD-10 - H40.1132) María is a pleasant 74-year-old female present today for MWV. Past medical history includes open-angle glaucoma, bilateral cataracts, dementia with behavioral symptoms and rheumatoid arthritis. #Cataracts: Patient followed by [facility] and had discussed with hazardous waste remover the option of cataract removal. Patient interested in this procedure in spring 2024. #Open-angle glaucoma: Followed by [facility]. Patient recently seen and advised to continue current regimen of latanoprost 1 drop once a day in the evening and brimonidine 0.2% every 8 hours. #Dementia: Patient followed by neurology at [facility]. Patient reports she has been on these medications for the past 10 years. Patient reports 10 years ago she was going through a stressful divorce and her was an alcoholic. Patient believes she had a nervous breakdown as opposed to the development of dementia. Neurologist recommended to continue current regimen of memantine 10 mg twice daily and divalproex sodium to 50 twice daily. Patient would like a reevaluation of dementia at neurology visit. Patient lives independently and completes all activities of daily living. Patient drives and reports that family members around her have no concern for memory loss. Patient has 6 month follow-up with neurology and will await further recommendations. #Rheumatoid arthritis: Patient followed by roundhouse firer/fireman at [facility] in [place]. Has 6-month follow-up. Currently on methotrexate and folic acid. Has arthritis present in shoulders and bilateral hands. Patient is asymptomatic while taking medication. Has been on this medication regimen for the past 8 years. Plan to continue as prescribed. #Prevention: Up-to-date on influenza, COVID, Tdap (2023) and shingles vaccinations. Last mammogram was 4 years ago. Colonoscopy performed 05/23/2022 at [facility] revealing 10 mm polyp in the transverse colon, 20 mm polyp found in the ascending colon, few small mouth diverticula in the sigmoid colon and internal hemorrhoids. Polyps successfully removed. Plan to repeat colonoscopy in 3 years for surveillance. Patient underwent total hysterectomy, no longer requiring Pap smears. Patient endorses tobacco use and smokes currently half a pack of cigarettes daily. Patient denies ever receiving a low-dose CT scan. Given tobacco history, highly recommend patient obtains low-dose CT scan. Discussed labs with patient which were all within normal limits aside from what was addressed above. PHQ-9 completed. Plan to follow-up in 3 months. Discussed HCP. Plan to obtain health care proxy at 3 month follow up. Patient is here for a Medicare wellness visit. Complete paperwork was reviewed and updated and has been filed and scanned. Depression screen completed. Alcohol AUDIT SCREEN completed. Obesity screen completed. Cardiovascular risk stratification screen completed. Cognition assessed and within reasonable limits Fall risk assessed. Discussed healthcare proxy. Discussed [place] order for life sustaining treatment, end-of-life issues, intubation and resuscitation dialysis artificial nutrition and hydration is appropriate. We discussed [place] order for life sustaining treatment and healthcare proxy. We discussed need for resuscitation, intubation, ventilation, need for dialysis, short-term versus long-term, nutrition, IV nutrition and hydration. Total time spent was 45 minutes with greater than 50% spent on counseling and coordinating care 05/30/2024 Mild dementia with other behavioral disturbance, unspecified dementia type (ICD-10 - F03.A18) María is a pleasant 74-year-old female present today for MWV. Past medical history includes open-angle glaucoma, bilateral cataracts, dementia with behavioral symptoms and rheumatoid arthritis. #Cataracts: Patient followed by [facility] and had discussed with hazardous waste remover the option of cataract removal. Patient interested in this procedure in spring 2024. #Open-angle glaucoma: Followed by [facility]. Patient recently seen and advised to continue current regimen of latanoprost 1 drop once a day in the evening and brimonidine 0.2% every 8 hours. #Dementia: Patient followed by neurology at [facility]. Patient reports she has been on these medications for the past 10 years. Patient reports 10 years ago she was going through a stressful divorce and her was an alcoholic. Patient believes she had a nervous breakdown as opposed to the development of dementia. Neurologist recommended to continue current regimen of memantine 10 mg twice daily and divalproex sodium to 50 twice daily. Patient would like a reevaluation of dementia at neurology visit. Patient lives independently and completes all activities of daily living. Patient drives and reports that family members around her have no concern for memory loss. Patient has 6 month follow-up with neurology and will await further recommendations. #Rheumatoid arthritis: Patient followed by roundhouse firer/fireman at [facility] in [place]. Has 6-month follow-up. Currently on methotrexate and folic acid. Has arthritis present in shoulders and bilateral hands. Patient is asymptomatic while taking medication. Has been on this medication regimen for the past 8 years. Plan to continue as prescribed. #Prevention: Up-to-date on influenza, COVID, Tdap (2023) and shingles vaccinations. Last mammogram was 4 years ago. Colonoscopy performed 05/23/2022 at [facility] revealing 10 mm polyp in the transverse colon, 20 mm polyp found in the ascending colon, few small mouth diverticula in the sigmoid colon and internal hemorrhoids. Polyps successfully removed. Plan to repeat colonoscopy in 3 years for surveillance. Patient underwent total hysterectomy, no longer requiring Pap smears. Patient endorses tobacco use and smokes currently half a pack of cigarettes daily. Patient denies ever receiving a low-dose CT scan. Given tobacco history, highly recommend patient obtains low-dose CT scan. Discussed labs with patient which were all within normal limits aside from what was addressed above. PHQ-9 completed. Plan to follow-up in 3 months. Discussed HCP. Plan to obtain health care proxy at 3 month follow up. Patient is here for a Medicare wellness visit. Complete paperwork was reviewed and updated and has been filed and scanned. Depression screen completed. Alcohol AUDIT SCREEN completed. Obesity screen completed. Cardiovascular risk stratification screen completed. Cognition assessed and within reasonable limits Fall risk assessed. Discussed healthcare proxy. Discussed [place] order for life sustaining treatment, end-of-life issues, intubation and resuscitation dialysis artificial nutrition and hydration is appropriate. We discussed [place] order for life sustaining treatment and healthcare proxy. We discussed need for resuscitation, intubation, ventilation, need for dialysis, short-term versus long-term, nutrition, IV nutrition and hydration. Total time spent was 45 minutes with greater than 50% spent on counseling and coordinating care 09/08/2024 Rheumatoid arthritis, involving unspecified site, unspecified whether rheumatoid factor present (ICD-10 - M06.9) Maíra is a pleasant 74-year-old female present today for 3-month follow-up. #Cataracts: Patient followed by [facility] and had discussed with hazardous waste remover the option of cataract removal. Patient interested in this procedure in . #Open-angle glaucoma: Followed by [facility]. Patient recently seen and advised to continue current regimen of latanoprost 1 drop once a day in the evening and brimonidine 0.2% every 8 hours. #Dementia: Followed by neurology at [facility]. Has been on memantine and divalproex daily. Patient disagrees regarding diagnosis. Believes she had a nervous breakdown as opposed to the development of dementia at the time. Patient has since discontinued both medications and neurology is aware. Patient lives independently and completes all activities of daily living. Patient drives and reports that family members surrounding her have no concern regarding memory loss. Will try to obtain updated neurology notes. #Rheumatoid arthritis: Followed by roundhouse firer/fireman at [facility]. Patient seen every 6 months. Managed on methotrexate and folic acid. # Tobacco dependence: Underwent low-dose CT scan for lung cancer screening approximately a month ago, still waiting for results. # Healthcare proxy discussed today and patient began filling out form, but will complete at home as she does not have her son's address or telephone number at hand. Will return and we will scan for our files. #Colonoscopy: Performed 05/2022 and found to have polyps with plan to repeat in 3 years, 2024. Will place order today for colonoscopy to be performed and scheduled for 05/2025. #Prediabetes: A1c on 05/23/2024 of 6.4%. Patient advised to limit sugar and refined carbohydrates. Repeat A1c today in office of 5.7%. Will follow-up in 4 months and repeat A1c and blood work. #Follow-up in 4 months and repeat blood work. All questions answered to patients satisfaction. Patient verbalized understanding of diagnosis and treatments explained. To call sooner prior to next visit it any questions/concerns arise. Case discussed with collaborating physician Dr. Cornejo who reviewed the assessment and plan. Chart, medications, labs, vital signs reviewed. Dictation was accomplished with the use of [employer] voice recognition software, prone to medical misidentifications and grammatical errors. This is unintentional and the practitioner does try to identify and correct these, but some could still be present. Please do not hesitate to contact practitioner for clarification. 04/04/2024 Encounter for immunization (ICD-10 - Z23) #Rheumatoid arthritis: Patient followed by rheumatology at [facility]. Has follow-up every 6 months. Currently taking methotrexate and folic acid. States arthritis has been present in shoulders and bilateral hands prior to starting medication. Currently denies any boggy or tenderness to joints. States she has been on medication for the past 8 years for this. plan to obtain records from roundhouse firer/fireman. #Cataracts #glaucoma: Patient is followed by [facility]. Has routine eye exams. Patient was recommended by eye doctor to undergo cataract removal surgery. States that she discussed performing this surgery in the spring 2024. Plan to continue latanoprost and brimonidine as prescribed. # Prevention: Patient up-to-date on influenza, COVID, shingles today. Plan to administer tetanus today. Last mammogram was 4 years ago. Will try to obtain records. Patient has had a total hysterectomy and no longer receives Pap smears. Plan to obtain baseline labs prior to next visit. Plan to schedule CPE in 6 to 8 weeks. Will consider low-dose CT due to patient's smoking history. Will try to obtain records from last primary care. Will try to get neurology records to understand more history. All questions answered to patients satisfaction. Patient verbalized understanding of diagnosis and treatments explained. To call sooner prior to next visit it any questions/concerns arise. Case discussed with collaborating physician Dr. Cornejo who reviewed the assessment and plan. Chart, medications, labs, vital signs reviewed. Dictation was accomplished with the use of [employer] voice recognition software, prone to medical misidentifications and grammatical errors. This is unintentional and the practitioner does try to identify and correct these, but some could still be present. Please do not hesitate to contact practitioner for clarification. 09/08/2024 Tobacco dependence (ICD-10 - F17.200) María is a pleasant 74-year-old female present today for 3-month follow-up. #Cataracts: Patient followed by [facility] and had discussed with hazardous waste remover the option of cataract removal. Patient interested in this procedure in . #Open-angle glaucoma: Followed by [facility]. Patient recently seen and advised to continue current regimen of latanoprost 1 drop once a day in the evening and brimonidine 0.2% every 8 hours. #Dementia: Followed by neurology at [facility]. Has been on memantine and divalproex daily. Patient disagrees regarding diagnosis. Believes she had a nervous breakdown as opposed to the development of dementia at the time. Patient has since discontinued both medications and neurology is aware. Patient lives independently and completes all activities of daily living. Patient drives and reports that family members surrounding her have no concern regarding memory loss. Will try to obtain updated neurology notes. #Rheumatoid arthritis: Followed by roundhouse firer/fireman at [facility]. Patient seen every 6 months. Managed on methotrexate and folic acid. # Tobacco dependence: Underwent low-dose CT scan for lung cancer screening approximately a month ago, still waiting for results. # Healthcare proxy discussed today and patient began filling out form, but will complete at home as she does not have her son's address or telephone number at hand. Will return and we will scan for our files. #Colonoscopy: Performed 05/2022 and found to have polyps with plan to repeat in 3 years, 2024. Will place order today for colonoscopy to be performed and scheduled for 05/2025. #Prediabetes: A1c on 05/23/2024 of 6.4%. Patient advised to limit sugar and refined carbohydrates. Repeat A1c today in office of 5.7%. Will follow-up in 4 months and repeat A1c and blood work. #Follow-up in 4 months and repeat blood work. All questions answered to patients satisfaction. Patient verbalized understanding of diagnosis and treatments explained. To call sooner prior to next visit it any questions/concerns arise. Case discussed with collaborating physician Dr. Cornejo who reviewed the assessment and plan. Chart, medications, labs, vital signs reviewed. Dictation was accomplished with the use of [employer] voice recognition software, prone to medical misidentifications and grammatical errors. This is unintentional and the practitioner does try to identify and correct these, but some could still be present. Please do not hesitate to contact practitioner for clarification. 05/30/2024 Rheumatoid arthritis involving shoulder, unspecified laterality, unspecified whether rheumatoid factor present (ICD-10 - M06.9) María is a pleasant 74-year-old female present today for MWV. Past medical history includes open-angle glaucoma, bilateral cataracts, dementia with behavioral symptoms and rheumatoid arthritis. #Cataracts: Patient followed by [facility] and had discussed with hazardous waste remover the option of cataract removal. Patient interested in this procedure in spring 2024. #Open-angle glaucoma: Followed by [facility]. Patient recently seen and advised to continue current regimen of latanoprost 1 drop once a day in the evening and brimonidine 0.2% every 8 hours. #Dementia: Patient followed by neurology at [facility]. Patient reports she has been on these medications for the past 10 years. Patient reports 10 years ago she was going through a stressful divorce and her was an alcoholic. Patient believes she had a nervous breakdown as opposed to the development of dementia. Neurologist recommended to continue current regimen of memantine 10 mg twice daily and divalproex sodium to 50 twice daily. Patient would like a reevaluation of dementia at neurology visit. Patient lives independently and completes all activities of daily living. Patient drives and reports that family members around her have no concern for memory loss. Patient has 6 month follow-up with neurology and will await further recommendations. #Rheumatoid arthritis: Patient followed by roundhouse firer/fireman at [facility]. Has 6-month follow-up. Currently on methotrexate and folic acid. Has arthritis present in shoulders and bilateral hands. Patient is asymptomatic while taking medication. Has been on this medication regimen for the past 8 years. Plan to continue as prescribed. #Prevention: Up-to-date on influenza, COVID, Tdap (2023) and shingles vaccinations. Last mammogram was 4 years ago. Colonoscopy performed 05/23/2022 at [facility] revealing 10 mm polyp in the transverse colon, 20 mm polyp found in the ascending colon, few small mouth diverticula in the sigmoid colon and internal hemorrhoids. Polyps successfully removed. Plan to repeat colonoscopy in 3 years for surveillance. Patient underwent total hysterectomy, no longer requiring Pap smears. Patient endorses tobacco use and smokes currently half a pack of cigarettes daily. Patient denies ever receiving a low-dose CT scan. Given tobacco history, highly recommend patient obtains low-dose CT scan. Discussed labs with patient which were all within normal limits aside from what was addressed above. PHQ-9 completed. Plan to follow-up in 3 months. Discussed HCP. Plan to obtain health care proxy at 3 month follow up. Patient is here for a Medicare wellness visit. Complete paperwork was reviewed and updated and has been filed and scanned. Depression screen completed. Alcohol AUDIT SCREEN completed. Obesity screen completed. Cardiovascular risk stratification screen completed. Cognition assessed and within reasonable limits Fall risk assessed. Discussed healthcare proxy. Discussed [place] order for life sustaining treatment, end-of-life issues, intubation and resuscitation dialysis artificial nutrition and hydration is appropriate. We discussed [place] order for life sustaining treatment and healthcare proxy. We discussed need for resuscitation, intubation, ventilation, need for dialysis, short-term versus long-term, nutrition, IV nutrition and hydration. Total time spent was 45 minutes with greater than 50% spent on counseling and coordinating care 05/30/2024 Depression screening (ICD-10 - Z13.31) María is a pleasant 74-year-old female present today for [facility]. Past medical history includes open-angle glaucoma, bilateral cataracts, dementia with behavioral symptoms and rheumatoid arthritis. #Cataracts: Patient followed by [facility] and had discussed with hazardous waste remover the option of cataract removal. Patient interested in this procedure in spring 2024. #Open-angle glaucoma: Followed by [facility]. Patient recently seen and advised to continue current regimen of latanoprost 1 drop once a day in the evening and brimonidine 0.2% every 8 hours. #Dementia: Patient followed by neurology at [facility]. Patient reports she has been on these medications for the past 10 years. Patient reports 10 years ago she was going through a stressful divorce and her was an alcoholic. Patient believes she had a nervous breakdown as opposed to the development of dementia. Neurologist recommended to continue current regimen of memantine 10 mg twice daily and divalproex sodium to 50 twice daily. Patient would like a reevaluation of dementia at neurology visit. Patient lives independently and completes all activities of daily living. Patient drives and reports that family members around her have no concern for memory loss. Patient has 6 month follow-up with neurology and will await further recommendations. #Rheumatoid arthritis: Patient followed by roundhouse firer/fireman at [facility] in [place]. Has 6-month follow-up. Currently on methotrexate and folic acid. Has arthritis present in shoulders and bilateral hands. Patient is asymptomatic while taking medication. Has been on this medication regimen for the past 8 years. Plan to continue as prescribed. #Prevention: Up-to-date on influenza, COVID, Tdap (2023) and shingles vaccinations. Last mammogram was 4 years ago. Colonoscopy performed 05/23/2022 at [facility] revealing 10 mm polyp in the transverse colon, 20 mm polyp found in the ascending colon, few small mouth diverticula in the sigmoid colon and internal hemorrhoids. Polyps successfully removed. Plan to repeat colonoscopy in 3 years for surveillance. Patient underwent total hysterectomy, no longer requiring Pap smears. Patient endorses tobacco use and smokes currently half a pack of cigarettes daily. Patient denies ever receiving a low-dose CT scan. Given tobacco history, highly recommend patient obtains low-dose CT scan. Discussed labs with patient which were all within normal limits aside from what was addressed above. PHQ-9 completed. Plan to follow-up in 3 months. Discussed HCP. Plan to obtain health care proxy at 3 month follow up. Patient is here for a Medicare wellness visit. Complete paperwork was reviewed and updated and has been filed and scanned. Depression screen completed. Alcohol AUDIT SCREEN completed. Obesity screen completed. Cardiovascular risk stratification screen completed. Cognition assessed and within reasonable limits Fall risk assessed. Discussed healthcare proxy. Discussed [place] order for life sustaining treatment, end-of-life issues, intubation and resuscitation dialysis artificial nutrition and hydration is appropriate. We discussed [place] order for life sustaining treatment and healthcare proxy. We discussed need for resuscitation, intubation, ventilation, need for dialysis, short-term versus long-term, nutrition, IV nutrition and hydration. Total time spent was 45 minutes with greater than 50% spent on counseling and coordinating care 09/08/2024 Mild dementia with other behavioral disturbance, unspecified dementia type (ICD-10 - F03.A18) María is a pleasant 74-year-old female present today for 3-month follow-up. #Cataracts: Patient followed by [facility] and had discussed with hazardous waste remover the option of cataract removal. Patient interested in this procedure in . #Open-angle glaucoma: Followed by [facility]. Patient recently seen and advised to continue current regimen of latanoprost 1 drop once a day in the evening and brimonidine 0.2% every 8 hours. #Dementia: Followed by neurology at [facility]. Has been on memantine and divalproex daily. Patient disagrees regarding diagnosis. Believes she had a nervous breakdown as opposed to the development of dementia at the time. Patient has since discontinued both medications and neurology is aware. Patient lives independently and completes all activities of daily living. Patient drives and reports that family members surrounding her have no concern regarding memory loss. Will try to obtain updated neurology notes. #Rheumatoid arthritis: Followed by roundhouse firer/fireman at [facility]. Patient seen every 6 months. Managed on methotrexate and folic acid. # Tobacco dependence: Underwent low-dose CT scan for lung cancer screening approximately a month ago, still waiting for results. # Healthcare proxy discussed today and patient began filling out form, but will complete at home as she does not have her son's address or telephone number at hand. Will return and we will scan for our files. #Colonoscopy: Performed 05/2022 and found to have polyps with plan to repeat in 3 years, 2024. Will place order today for colonoscopy to be performed and scheduled for 05/2025. #Prediabetes: A1c on 05/23/2024 of 6.4%. Patient advised to limit sugar and refined carbohydrates. Repeat A1c today in office of 5.7%. Will follow-up in 4 months and repeat A1c and blood work. #Follow-up in 4 months and repeat blood work. All questions answered to patients satisfaction. Patient verbalized understanding of diagnosis and treatments explained. To call sooner prior to next visit it any questions/concerns arise. Case discussed with collaborating physician Dr. Cornejo who reviewed the assessment and plan. Chart, medications, labs, vital signs reviewed. Dictation was accomplished with the use of [employer] voice recognition software, prone to medical misidentifications and grammatical errors. This is unintentional and the practitioner does try to identify and correct these, but some could still be present. Please do not hesitate to contact practitioner for clarification. 05/30/2024 Advanced directives, counseling/disc ussion (ICD-10 - Z71.89) María is a pleasant 74-year-old female present today for [facility]. Past medical history includes open-angle glaucoma, bilateral cataracts, dementia with behavioral symptoms and rheumatoid arthritis. #Cataracts: Patient followed by [facility] and had discussed with hazardous waste remover the option of cataract removal. Patient interested in this procedure in spring 2024. #Open-angle glaucoma: Followed by [facility]. Patient recently seen and advised to continue current regimen of latanoprost 1 drop once a day in the evening and brimonidine 0.2% every 8 hours. #Dementia: Patient followed by neurology at [facility]. Patient reports she has been on these medications for the past 10 years. Patient reports 10 years ago she was going through a stressful divorce and her was an alcoholic. Patient believes she had a nervous breakdown as opposed to the development of dementia. Neurologist recommended to continue current regimen of memantine 10 mg twice daily and divalproex sodium to 50 twice daily. Patient would like a reevaluation of dementia at neurology visit. Patient lives independently and completes all activities of daily living. Patient drives and reports that family members around her have no concern for memory loss. Patient has 6 month follow-up with neurology and will await further recommendations. #Rheumatoid arthritis: Patient followed by roundhouse firer/fireman at [facility] in [place]. Has 6-month follow-up. Currently on methotrexate and folic acid. Has arthritis present in shoulders and bilateral hands. Patient is asymptomatic while taking medication. Has been on this medication regimen for the past 8 years. Plan to continue as prescribed. #Prevention: Up-to-date on influenza, COVID, Tdap (2023) and shingles vaccinations. Last mammogram was 4 years ago. Colonoscopy performed 05/23/2022 at [facility] revealing 10 mm polyp in the transverse colon, 20 mm polyp found in the ascending colon, few small mouth diverticula in the sigmoid colon and internal hemorrhoids. Polyps successfully removed. Plan to repeat colonoscopy in 3 years for surveillance. Patient underwent total hysterectomy, no longer requiring Pap smears. Patient endorses tobacco use and smokes currently half a pack of cigarettes daily. Patient denies ever receiving a low-dose CT scan. Given tobacco history, highly recommend patient obtains low-dose CT scan. Discussed labs with patient which were all within normal limits aside from what was addressed above. PHQ-9 completed. Plan to follow-up in 3 months. Discussed HCP. Plan to obtain health care proxy at 3 month follow up. Patient is here for a Medicare wellness visit. Complete paperwork was reviewed and updated and has been filed and scanned. Depression screen completed. Alcohol AUDIT SCREEN completed. Obesity screen completed. Cardiovascular risk stratification screen completed. Cognition assessed and within reasonable limits Fall risk assessed. Discussed healthcare proxy. Discussed [place] order for life sustaining treatment, end-of-life issues, intubation and resuscitation dialysis artificial nutrition and hydration is appropriate. We discussed [place] order for life sustaining treatment and healthcare proxy. We discussed need for resuscitation, intubation, ventilation, need for dialysis, short-term versus long-term, nutrition, IV nutrition and hydration. Total time spent was 45 minutes with greater than 50% spent on counseling and coordinating care Plan Of Treatment Pending Test Test Name Order Date LIPID PANEL, STANDARD 04/04/2024 LIPID PANEL, STANDARD 09/08/2024 COMPREHENSIVE METABOLIC PANEL 09/08/2024 COMPREHENSIVE METABOLIC PANEL 04/04/2024 CBC (INCLUDES DIFF/PLT) 04/04/2024 CBC (INCLUDES DIFF/PLT) 09/08/2024 URINALYSIS, COMPLETE 04/04/2024 HEMOGLOBIN A1c 04/04/2024 T4, FREE 04/04/2024 TSH 04/04/2024 T3, FREE 04/04/2024 VITAMIN D,25-OH,TOTAL,IA 04/04/2024 Hemoglobin [id number] 09/08/2024 Next Appt Details Provider Name:DRISS TURK, 11/24/2024 10:30:00 AM, [address], [place], [address], Provider Name:DRISS TURK, 01/09/2025 01:15:00 PM, [address], [place], [address], Insurance Providers Payer Name Payer Address Payer Phone Subscriber Number Group Number Insured Name Patient Relationship to Insured Coverage Start Date Coverage End Date Medicare Part B J14 [address] [place] [id number] [phone] [id number] María Redmond Self - patient is the insured [facility] [address] [place] [address] [id number] Nyla María Self - patient is the insured 3 Medical (General) History Medical History History ICD Code Rheumatoid arthritis Open-angle glaucoma bilateral Cataracts Dementia with behavioral symptoms Tobacco use Prediabetes Surgical History Surgery Date(Month/Year) hysterectomy hip replacement
[2024-11-21 21:12] LABS: MANUAL DIFF FLAG NO
[2024-11-21 21:13] LABS: Basophils Absolute Auto 0.1 X10*3/uL (0.0-0.2); Basophils Percent Auto 1.3 % (0-2); Eosinophils Absolute Auto 0.1 X10*3/uL (0.0-0.4); Eosinophils Percent Auto 1.3 % (0-4); Hematocrit 34.8 % (37.0-47.0); Hemoglobin 12.1 g/dl (12.0-16.0); Imm Gran Abs Auto 0.03 X10*3/uL (0.00-0.03); Imm Gran Pct Auto 0.3 % (0.0-0.4); Lymphocytes Absolute Auto 2.2 X10*3/uL (1.2-4.9); Lymphocytes Percent Auto 24.3 % (20-40); Mean Corpuscular HGB Conc 34.8 g/dl (31.0-35.0); Mean Corpuscular Hemoglobin 32.4 pg (27.0-33.0); Mean Platelet Volume 9.2 fL (9.4-12.3); Monocytes Absolute Auto 0.6 X10*3/uL (0.1-1.2); Neutrophils Percent Auto 65.8 % (45-73); Platelet Count 307 X10*3/uL (160-400); Red Blood Count 3.74 X10*6/uL (4.20-5.50); Red Cell Distribution Width 17.3 % (11.0-16.0); White Blood Count 9.2 X10*3/uL (4.8-10.8)
[2024-11-21 21:27] LABS: Acetaminophen LAB < 3 mcg/mL (<30); Alanine Aminotransferase 89 U/L (0-31); Alkaline Phosphatase 64 U/L (39-117); Anion Gap 12 (12-20); Aspartate Amino Transferase 36 U/L (5-31); Bilirubin Total 0.2 mg/dL (0.0-1.0); Blood Urea Nitrogen 21 mg/dL (9-16); Calcium 8.9 mg/dL (8.4-10.2); Carbon Dioxide 28 mmol/L (22-29); Chloride 107 mmol/L (96-108); Estimated Glomerular Filt Rate > 60; Ethanol < 10 mg/dL; Glucose Random 121 mg/dL (60-115); Potassium 3.9 mmol/L (3.3-5.1); Salicylate < 5.0 mg/dL (15-30); Sodium 143 mmol/L (135-145); Total Protein 5.9 g/dL (6.5-8.0)
[2024-11-22 06:49] VITALS: BP 116/55; PULSE 57; RESP 15; TEMP 36.4; O2SAT 97
--- NOTE | 2024-11-22 07:10 | PC.NURSE ---
Patient is a 74-year-old female who presents after calling her friend who brought her in for evaluation. She told the friend and the friend confirmed that she had smashed windows in her home with a hammer for unclear reason. Patient recently had an evaluation was sent to rehab after an overdose that was later determined or felt not to be a suicidal attempt. She has had more erratic behavior recently. No SI or HI. The patient appears to have cognitive decline and/or formal dementia as well as underlying psychiatric disorder. Her behavior is erratic with occasional violent behavior and destructive behavior.
[2024-11-22] MEDS: Ascorbic Acid 500 MG TABLET PO ×2 (08:13→20:36)
[2024-11-22] MEDS: Meclizine HCl 12.5 MG TABLET PO ×2 (08:13→15:04)
[2024-11-22] MEDS: Atorvastatin Calcium 80 MG TABLET PO (08:13)
[2024-11-22] MEDS: Memantine HCl 10 MG TABLET PO ×2 (08:13→20:36)
[2024-11-22] MEDS: Aspirin 81 MG TAB.CHEW PO (08:13)
[2024-11-22] MEDS: Cholecalciferol (Vitamin D3) 25 MCG TABLET 50 MCG PO (08:14)
[2024-11-22] MEDS: polyethylene glycoL 3350 17 GM POWD.PACK PO (08:14)
[2024-11-22] MEDS: Folic Acid 1 MG TABLET PO (08:14)
[2024-11-22] MEDS: amLODIPine Besylate 5 MG TABLET PO (08:14)
[2024-11-22] MEDS: Brimonidine Tartrate 0.2% Oph 5 ML BOTTLE 1 DROP EYE-BOTH ×2 (09:05→20:37)
[2024-11-22] MEDS: metHOTREXate sodium 2.5 MG TABLET 12.5 MG PO (09:05)
--- NOTE | 2024-11-22 10:12 | PHA.MEDREC ---
Pharmacy Consult ? Medication Reconciliation Pharmacy has reviewed the medication reconciliation completed byu nursing. MTX (5 tabs) on Thursday.
--- NOTE | 2024-11-22 13:04 | MHC.CM.ED ---
Received notification from Suzanne WEBBER that patient is active with their agency. Return referral made so agency can follow for d/c needs.
--- NOTE | 2024-11-22 16:07 | MHC.CARE ---
Pt is pending psych consult for disposition, Anastasiia Kurtz STRETCHER LEVELER OPERATOR HELPER notified at 8 AM.
--- NOTE | 2024-11-22 16:26 | PM.PSYCN ---
History of Present Illness Date of Service: 11/22/2024 Chief Complaint: Crisis Sources of Information: patient interviewed, chart reviewed and crisis/core team assessment reviewed HPI Narrative: Mrs. Redmond is a 74 year-old woman with hx of dementia who was brought to [facility] ED after she called a friend and reported that she had shattered the window at her apartment. She reported feeling afraid but did not elaborate as to why she decided to do this. Pertient labs in the ED include CBC without leukocytosis, CMP without electrolyte abnormalities, BUN 21, Cr 0.81, creatinine clearance 36. UA not suggestive of UTI. Pt seen in the ED with her son. Pt reports she woke up worried. She does not know why. She reports she decided to shattered the window but does not know exactly why. She reports she was fearful after this happened. She denies hearing voices but reports at times thinks someone may be calling her. She denies being worried about someone trying to harm her. She knows she is at [facility]. She knows the month and the year. She reports she has been diagnosed with dementia by Dr. Garvey for some years and has been seeing although reports not regularly. She reports she had been on namenda but thought her memory was better and stopped the medications. Recently, there have been concern about not taking medications as prescribed, mostly due to memory/cognitive impairments. She denies SI/HI. Past Psychiatric History: OP: none currently. Medical Evaluation Reviewed: Yes Diagnostics Vital Signs (24Hr): Vital Signs - 24 hr 11/21/24 16:32 11/22/24 06:49 Temperature 97.7 F 97.6 F Pulse Rate 69 57 Respiratory Rate 16 15 Blood Pressure 149/78 H 116/55 L Pulse Oximetry 98 97 Oxygen Delivery Method Room Air Room Air BMI result Body Mass Index 21.5 Labs 11/21/24 21:05 11/22/24 20:02 Labs: Laboratory Results - last 48 hr 11/21/24 11/21/24 16:48 21:05 WBC 9.2 RBC 3.74 L Hgb 12.1 Hct 34.8 L MCV 93.0 MCH 32.4 MCHC 34.8 RDW 17.3 H Plt Count 307 MPV 9.2 L Immature Gran % (Auto) 0.3 Neut % (Auto) 65.8 Lymph % (Auto) 24.3 Pendleton % (Auto) 7.0 Eos % (Auto) 1.3 Baso % (Auto) 1.3 Lymph # (Auto) 2.2 [place]end[place] # (Auto) 0.6 Eos # (Auto) 0.1 Baso # (Auto) 0.1 Abs Immat Gran (auto) 0.03 Absolute Neuts (auto) 6.0 Absolute Nucleated RBC 0.000 Nucleated RBC % (auto) 0.0 Sodium 143 Potassium 3.9 Chloride 107 Carbon Dioxide 28 Anion Gap 12 BUN 21 H Creatinine 0.81 Estim Creat Clear Calc 36.0 Estimated GFR > 60 Random Glucose 121 H Calcium 8.9 Total Bilirubin 0.2 AST 36 H ALT 89 H Alkaline Phosphatase 64 Total Protein 5.9 L Albumin 4.0 Urine Color Yellow Urine Appearance Clear Urine pH 8.5 Ur Specific Jasper <= 1.005 Urine Protein Negative Urine Glucose (UA) Negative Urine Ketones Negative Urine Blood Negative Urine Nitrite Negative Ur Leukocyte Esterase Negative Urine RBC 0-2 Urine WBC 0-5 Ur Squamous Epith Cells 0-2 Urine Bacteria None Seen Hyaline Casts 0-2 Salicylates < 5.0 L Urine Opiates Screen Not Detected Ur Buprenorphine Scrn Not Detected Ur Oxycodone Screen Not Detected Urine Methadone Screen Not Detected Urine Fentanyl Screen Not Detected Acetaminophen < 3 Ur Barbiturates Screen Not Detected Ur Phencyclidine Scrn Not Detected Ur Amphetamines Screen Not Detected U Benzodiazepines Scrn Not Detected Urine Cocaine Screen Not Detected U Marijuana (THC) Screen Not Detected Ethyl Alcohol < 10 Mental Status Exam Mental Status Exam Narrative: Appearance: wearing hospital gown, fair hygiene, in NAD Behavior: cooperative and friendly Psychomotor: no agitation or retardation noted Speech: mostly clear, regular rate/rhythm/volume, spontaneous TP: mostly linear TC: hoping to go back home soon Mood: okay Affect: congruent SI: denies HI; denies VH/AH: no overt signs at the moment Delusions: some vague suspiciousness Insight/judgment: poor x 2. memory/cog: alert, oriented to place, month, year, situation. pending MOCA/ACL. Medications Medications Current Medications Amlodipine Besylate (Amlodipine Besylate 5 Mg Tablet) 5 mg PO DAILY COUNT INCLUDES THE [facility]; Protocol Last Admin: 11/22/24 08:14 Dose: 5 mg Ascorbic Acid (Ascorbic Acid 500 Mg Tablet) 500 mg PO BID COUNT INCLUDES THE [facility] Last Admin: 11/22/24 08:13 Dose: 500 mg Aspirin (Aspirin 81 Mg Tab.Chew) 81 mg PO DAILY COUNT INCLUDES THE [facility] Last Admin: 11/22/24 08:13 Dose: 81 mg Atorvastatin Calcium (Atorvastatin Calcium 80 Mg Tablet) 80 mg PO DAILY COUNT INCLUDES THE [facility] Last Admin: 11/22/24 08:13 Dose: 80 mg Brimonidine Tartrate (Brimonidine Tartrate 0.2% Oph 5 Ml Bottle) 1 drop EYE-BOTH BID COUNT INCLUDES THE [facility] Last Admin: 11/22/24 09:05 Dose: 1 drop Divalproex Sodium (Divalproex Sodium Er 250 Mg Tab.Er.24h) 250 mg PO BEDTIME [facility] Folic Acid (Folic Acid 1 Mg Tablet) 1 mg PO DAILY COUNT INCLUDES THE [facility] Last Admin: 11/22/24 08:14 Dose: 1 mg Latanoprost (Latanoprost 0.005 % Ophth Domonique 2.5 Ml Drops) 1 drop EYE-BOTH BEDTIME [facility] Meclizine HCl (Meclizine Hcl 12.5 Mg Tablet) 12.5 mg PO Q8H COUNT INCLUDES THE [facility] Last Admin: 11/22/24 15:04 Dose: 12.5 mg Memantine (Memantine Hcl 10 Mg Tablet) 10 mg PO BID COUNT INCLUDES THE [facility] Last Admin: 11/22/24 08:13 Dose: 10 mg Methotrexate (Methotrexate Sodium 2.5 Mg Tablet) 12.5 mg PO Tu COUNT INCLUDES THE [facility] Last Admin: 11/22/24 09:05 Dose: 12.5 mg Polyethylene Glycol (Polyethylene Glycol 3350 17 Gm Powd.Pack) 17 gm PO DAILY COUNT INCLUDES THE [facility] Last Admin: 11/22/24 08:14 Dose: 17 gm Vitamin D (Cholecalciferol (Vitamin D3) 25 Mcg Tablet) 50 mcg PO DAILY COUNT INCLUDES THE [facility] Last Admin: 11/22/24 08:14 Dose: 50 mcg Allergies Allergies Allergy/AdvReac Type Severity Reaction Status Date / Time meperidine [Demerol] Allergy Unknown Unknown Verified 11/21/24 15:39 morphine [MORPHINE] Allergy Unknown UNKNOWN Verified 11/21/24 15:39 oxycodone [Percocet] Allergy Unknown Unknown Verified 11/21/24 15:39 Sulfa (Sulfonamide Allergy Unknown UNKNOWN Verified 11/21/24 15:39 Antibiotics) [SULFA(SULFONAMIDE ANTIBIOTICS)] prednisone [PREDNISONE] AdvReac Unknown UNKNOWN Verified 11/21/24 15:39 Assessment & Plan Assessment & Plan (1) Major neurocognitive disorder: Status: Acute Code(s): F03.90 - Unspecified dementia, unspecified severity, without behavioral disturbance, psychotic disturbance, mood disturbance, and anxiety Plan Mrs. Redmond is a 74 year-old woman with hx of dementia who lives by her self. She was brought to [facility] ED after she called friend reporting she had shatter glss window for unclear reasons and that she was afraid. Medical work up mostly unremarkable. She does not present with s/s of delirium. There is some suspiciousness which could be related to dementia process rather than primarily psychiatric disorder. There has been concern in terms of her ability to manage medications and increase memory issues lately. This chart writer discussed with son and Mrs. Redmond, completing ACL/MOCA to get a better sense as to how progressed her dementia is and whether she is safe to be on her own. Both agreed to this. For now, will start low dose risperidone for paranoia and suspiciousness. PLAN 1. Ordered OT assessments including MOCA and ACL- assess pt's safety to live independently in the community. 2. start risperidone 0.25mg po BID- suspiciousness/paranoid delusions 3. pending ammonia- pt on depakote. 4. No need for anita psych admission Total time managing care of this patient today ____ minutes.
[2024-11-22 20:25] LABS: Ammonia 25 umol/L (13-55)
[2024-11-22 20:26] LABS: Alanine Aminotransferase 75 U/L (0-31); Albumin Level 4.3 g/dL (3.5-5.0); Alkaline Phosphatase 65 U/L (39-117); Anion Gap 12 (12-20); Aspartate Amino Transferase 29 U/L (5-31); Bilirubin Total 0.3 mg/dL (0.0-1.0); Blood Urea Nitrogen 25 mg/dL (9-16); Calcium 9.5 mg/dL (8.4-10.2); Carbon Dioxide 29 mmol/L (22-29); Chloride 106 mmol/L (96-108); Estimated Glomerular Filt Rate > 60; Glucose Random 109 mg/dL (60-115); Potassium 3.9 mmol/L (3.3-5.1); Sodium 143 mmol/L (135-145); Total Protein 6.4 g/dL (6.5-8.0)
[2024-11-22] MEDS: Latanoprost 0.005 % Ophth Sol 2.5 ML DROPS 1 DROP EYE-BOTH (20:37)
[2024-11-22] MEDS: Divalproex Sodium ER 250 MG TAB.ER.24H PO (20:37)
[2024-11-22] MEDS: risperiDONE 0.5 MG TABLET 0.25 MG PO (20:44)
[2024-11-22 20:49] VITALS: BP 144/45; PULSE 65; RESP 18; TEMP 36.3; O2SAT 98
[2024-11-23] VITALS (7 sets, daily range): BP systolic 83–136; BP diastolic 36–64; PULSE 61–85; RESP 16–18; TEMP 36.6–36.9; O2SAT 95–98
[2024-11-23] MEDS: Meclizine HCl 12.5 MG TABLET PO ×4 (00:38→22:56)
[2024-11-23] MEDS: Aspirin 81 MG TAB.CHEW PO (09:21)
[2024-11-23] MEDS: Cholecalciferol (Vitamin D3) 25 MCG TABLET 50 MCG PO (09:21)
[2024-11-23] MEDS: Atorvastatin Calcium 80 MG TABLET PO (09:22)
[2024-11-23] MEDS: Folic Acid 1 MG TABLET PO (09:22)
[2024-11-23] MEDS: polyethylene glycoL 3350 17 GM POWD.PACK PO (09:22)
[2024-11-23] MEDS: Memantine HCl 10 MG TABLET PO ×2 (09:22→20:18)
[2024-11-23] MEDS: Brimonidine Tartrate 0.2% Oph 5 ML BOTTLE 1 DROP EYE-BOTH ×2 (09:22→20:21)
[2024-11-23] MEDS: amLODIPine Besylate 5 MG TABLET PO (09:22)
[2024-11-23] MEDS: risperiDONE 0.5 MG TABLET 0.25 MG PO ×2 (09:22→20:18)
[2024-11-23] MEDS: Ascorbic Acid 500 MG TABLET PO ×2 (09:22→20:20)
[2024-11-23] MEDS: Divalproex Sodium ER 250 MG TAB.ER.24H PO (20:20)
[2024-11-23] MEDS: Latanoprost 0.005 % Ophth Sol 2.5 ML DROPS 1 DROP EYE-BOTH (20:21)
--- NOTE | 2024-11-24 05:59 | PC.NURSE ---
Pt noted to be pacing the hallway at times. Steady gait. Pt understands to ask if she needs anything. Pt requested medication for sleep however after receiving order, pt noted to be sleeping. Did not wake patient.
[2024-11-24 08:36] VITALS: BP 104/42; PULSE 74; RESP 15; TEMP 36.6; O2SAT 97
--- NOTE | 2024-11-24 08:42 | PC.NURSE ---
Morning amlodipine held d/t pt BP running low. Morning BP 104/42- updated in worklist by biomedical instrument technician. MD Paredes aware. Pt resting quietly in common area watching TV, talking with supervisor customer services.
[2024-11-24] MEDS: Memantine HCl 10 MG TABLET PO ×2 (09:15→21:27)
[2024-11-24] MEDS: Meclizine HCl 12.5 MG TABLET PO (09:15)
[2024-11-24] MEDS: Ascorbic Acid 500 MG TABLET PO ×2 (09:15→21:27)
[2024-11-24] MEDS: polyethylene glycoL 3350 17 GM POWD.PACK PO (09:15)
[2024-11-24] MEDS: Aspirin 81 MG TAB.CHEW PO (09:15)
[2024-11-24] MEDS: Folic Acid 1 MG TABLET PO (09:16)
[2024-11-24] MEDS: Cholecalciferol (Vitamin D3) 25 MCG TABLET 50 MCG PO (09:16)
[2024-11-24] MEDS: Atorvastatin Calcium 80 MG TABLET PO (09:16)
[2024-11-24] MEDS: risperiDONE 0.5 MG TABLET 0.25 MG PO ×2 (09:17→21:27)
[2024-11-24] MEDS: Brimonidine Tartrate 0.2% Oph 5 ML BOTTLE 1 DROP EYE-BOTH ×2 (09:18→22:17)
--- NOTE | 2024-11-24 09:30 | PC.NURSE ---
Pt took morning medications whole with applesauce.
--- NOTE | 2024-11-24 10:08 | MHC.EDTECH ---
Patient had a conversation with her sister over the phone that frustrated her. Patient ripped her bible, threw a puzzle on the floor, and then chose to put her toothbrush and toothpaste in the toilet. Patient then came to staff and informed us that she tried to flush the things down the toilet. Items removed from the toilet. This tech spoke with patient regarding her frustrations and patient now resting quietly in room with a warm blanket.
--- NOTE | 2024-11-24 12:26 | MHC.OT.IE ---
[address] [phone] F: [phone] Occupational Therapy Inpatient Evaluation Patient Name: María Redmond History Diagnosis: dementia History of Current Condition: Medical History Reviewed: Precautions: Precautions Comments: Social History History Obtained By: ROJAS Gudino Lives With: alone Type of Dwelling: apartment Number of Floors: Number of Stairs to Enter: Living Situation Comment: Adaptive Equipment Owned: Adaptive Equipment Comment: Prior Level of Function: Pain Assessment Pain Score: Pain Scale Used: Pain Location and Description: Comment: Current Condition Behavior and Communication Alertness: alert and engaging Orientation: x5 Safety Awareness: poor Cognition Comments: Pt lives alone in her own apartment. She has a diagnosis of dementia and verbalized acknowledgement of her diagnosis. She recounts a history of trauma to this clinician. Pt scored a 16/30 on the MOCA including +1 for education with deficits in all domains indicating MODERATE cognitive impairment. Pt scored a 4.4 on the Boy Cognitive Level Screen indicating the need for 34% cognitive assistance for safety and problem solving. Pt would benefit from daily safety checks, assistance with medication management and IADLs, attending a day program, set-up for ADLs. Vision: Hearing: Coordination Finger to Nose: Finger Opposition: Rapid Alternating Movement: Comments: Sensory Assessment Light Touch: Localization: Proprioception: Temperature: Stereognosis: Comments: Musculoskeletal Upper Extremity ROM: Upper Extremity Strength: Balance Static Sitting: Dynamic Sitting: Static Standing: Dynamic Standing: Comments: Self-Care Feeding: Grooming: Upper Body Bathing: Lower Body Bathing: Upper Body Dressing: Lower Body Dressing: Toileting: IADL/Home Care: Comments: Bed Mobility Assistive Device: Rolling: Supine to Sit: Sit to Supine: Comments: Transfers Assistive Device: Transfer Type: Transfer Destination: Transfer Ability: Comments: Functional Mobility Assistive Device: Ambulation Distance: Ambulation Ability: Comments: Plan of Care Rehab Potential: Assessment: Problem List: Treatment Plan: Goals: Goals Set with Patient: Frequency and Duration: The patient will be seen Equipment Needed: Discharge Plan: Discharge Plan Comment: Discharge Today: Electronically Signed By: ROJAS Gudino Reviewed/agree with student documentation: Therapist:
[2024-11-24 15:10] VITALS: BP 115/54; PULSE 69; RESP 14; TEMP 36.3; O2SAT 98
--- NOTE | 2024-11-24 16:46 | PM.PSYCN ---
History of Present Illness Date of Service: 11/24/2024 Chief Complaint: Crisis Discussed with referring provider: Yes Sources of Information: patient interviewed, chart reviewed and crisis/core team assessment reviewed HPI Narrative: Interim Hx: Pt reports feeling well. She was hotn yesterday and reports feeling dizzy. She is has been drinking more fluids today. No SI/HI. No overt psychosis or delusions. MOCA completed ACL 4.4 showing moderate cognitive impairments. Past Psychiatric History: OP: none currently. Diagnostics Vital Signs (24Hr): Vital Signs - 24 hr 11/23/24 21:04 11/24/24 08:36 11/24/24 15:10 Temperature 97.9 F 97.8 F 97.3 F Pulse Rate 68 74 69 Respiratory Rate 18 15 14 Blood Pressure 129/47 L 104/42 L 115/54 L Pulse Oximetry 97 97 98 Oxygen Delivery Method Room Air Room Air Room Air BMI result Body Mass Index 21.5 Labs 11/21/24 21:05 11/22/24 20:02 Labs: Laboratory Results - last 48 hr 11/22/24 20:02 Sodium 143 Potassium 3.9 Chloride 106 Carbon Dioxide 29 Anion Gap 12 BUN 25 H Creatinine 0.73 Estim Creat Clear Calc 40.0 Estimated GFR > 60 Random Glucose 109 Calcium 9.5 D Total Bilirubin 0.3 AST 29 ALT 75 H Alkaline Phosphatase 65 Ammonia 25 Total Protein 6.4 L Albumin 4.3 Mental Status Exam Mental Status Exam Narrative: Appearance: wearing hospital gown, fair hygiene, in NAD Behavior: cooperative and friendly Psychomotor: no agitation or retardation noted Speech: mostly clear, regular rate/rhythm/volume, spontaneous TP: mostly linear TC: hoping to go back home soon Mood: okay Affect: congruent SI: denies HI; denies VH/AH: no overt signs at the moment Delusions: some vague suspiciousness Insight/judgment: poor x 2. memory/cog: alert, oriented to place, month, year, situation. MOCA , ACL 4.4 Medications Medications Current Medications Amlodipine Besylate (Amlodipine Besylate 5 Mg Tablet) 5 mg PO DAILY [facility]; Protocol Last Admin: 11/24/24 09:08 Dose: Not Given Ascorbic Acid (Ascorbic Acid 500 Mg Tablet) 500 mg PO BID [facility] Last Admin: 11/24/24 09:15 Dose: 500 mg Aspirin (Aspirin 81 Mg Tab.Chew) 81 mg PO DAILY [facility] Last Admin: 11/24/24 09:15 Dose: 81 mg Atorvastatin Calcium (Atorvastatin Calcium 80 Mg Tablet) 80 mg PO DAILY [facility] Last Admin: 11/24/24 09:16 Dose: 80 mg Brimonidine Tartrate (Brimonidine Tartrate 0.2% Oph 5 Ml Bottle) 1 drop EYE-BOTH BID [facility] Last Admin: 11/24/24 09:18 Dose: 1 drop Divalproex Sodium (Divalproex Sodium Er 250 Mg Tab.Er.24h) 250 mg PO BEDTIME [facility] Last Admin: 11/23/24 20:20 Dose: 250 mg Folic Acid (Folic Acid 1 Mg Tablet) 1 mg PO DAILY [facility] Last Admin: 11/24/24 09:16 Dose: 1 mg Latanoprost (Latanoprost 0.005 % Ophth Domonique 2.5 Ml Drops) 1 drop EYE-BOTH BEDTIME [facility] Last Admin: 11/23/24 20:21 Dose: 1 drop Meclizine HCl (Meclizine Hcl 12.5 Mg Tablet) 12.5 mg PO Q8H PRN PRN Reason: vertigo Memantine (Memantine Hcl 10 Mg Tablet) 10 mg PO BID [facility] Last Admin: 11/24/24 09:15 Dose: 10 mg Methotrexate (Methotrexate Sodium 2.5 Mg Tablet) 12.5 mg PO Tu [facility] Last Admin: 11/22/24 09:05 Dose: 12.5 mg Polyethylene Glycol (Polyethylene Glycol 3350 17 Gm Powd.Pack) 17 gm PO DAILY [facility] Last Admin: 11/24/24 09:15 Dose: 17 gm Risperidone (Risperidone 0.5 Mg Tablet) 0.25 mg PO BID [facility] Last Admin: 11/24/24 09:17 Dose: 0.25 mg Vitamin D (Cholecalciferol (Vitamin D3) 25 Mcg Tablet) 50 mcg PO DAILY [facility] Last Admin: 11/24/24 09:16 Dose: 50 mcg Allergies Allergies Allergy/AdvReac Type Severity Reaction Status Date / Time meperidine [Demerol] Allergy Unknown Unknown Verified 11/21/24 15:39 morphine [MORPHINE] Allergy Unknown UNKNOWN Verified 11/21/24 15:39 oxycodone [Percocet] Allergy Unknown Unknown Verified 11/21/24 15:39 Sulfa (Sulfonamide Allergy Unknown UNKNOWN Verified 11/21/24 15:39 Antibiotics) [SULFA(SULFONAMIDE ANTIBIOTICS)] prednisone [PREDNISONE] AdvReac Unknown UNKNOWN Verified 11/21/24 15:39 Assessment & Plan Assessment & Plan (1) Major neurocognitive disorder: Status: Acute Code(s): F03.90 - Unspecified dementia, unspecified severity, without behavioral disturbance, psychotic disturbance, mood disturbance, and anxiety Plan Mrs. Redmond is a 74 year-old woman with hx of dementia who lives by her self. She was brought to [facility] after she called friend reporting she had shatter glass window for unclear reasons and that she was afraid. Medical work up mostly unremarkable. She does not present with s/s of delirium. There is some suspiciousness which could be related to dementia process rather than primarily psychiatric disorder. There has been concern in terms of her ability to manage medications and increase memory issues lately. This proposal manager writer discussed with son and Mrs. Redmond, completing ACL/MOCA to get a better sense as to how progressed her dementia is and whether she is safe to be on her own. Both agreed to this. For now, will start low dose risperidone for paranoia and suspiciousness. PLAN 11/24-- MOCA ACL 4.4 showing moderate cognitive impairment. Appreciate OT recommendation- Pt would benefit from daily safety checks, assistance with medication management and IADLs, attending a day program, set-up for ADLs. This proposal manager writer spoke with her son, Dylan, provided update on memory assessments, need for additional support with medication management, paying bills, not safe driving unless repeat DMV driving test. We also discussed added medication- risperidone 0.5mg po BID for suspiciousness/paranoia. Pt cleared to be discharged back home. Case management to coordinate- if needed VNA and additional supports pt may qualify at home. Total time managing care of this patient today ____ minutes.
--- NOTE | 2024-11-24 17:44 | PC.NURSE ---
Patient is a 74 year-old woman with hx of dementia who lives by her self. She was brought to [facility] ED after she called friend reporting she had shatter glass window for unclear reasons and that she was afraid. Medical work up mostly unremarkable. She does not present with s/s of delirium. There is some suspiciousness which could be related to dementia process rather than primarily psychiatric disorder. There has been concern in terms of her ability to manage medications and increase memory issues lately. This chart writer discussed with son and Mrs. Redmond, completing ACL/MOCA to get a better sense as to how progressed her dementia is and whether she is safe to be on her own. Both agreed to this. For now, will start low dose risperidone for paranoia and suspiciousness. 11/24-- MOCA ACL 4.4 showing moderate cognitive impairment. Appreciate OT recommendation- Pt would benefit from daily safety checks, assistance with medication management and IADLs, attending a day program, set-up for ADLs. Patient transitioned to overflow 5. Alert and oriented. Lungs clear bilat. Respirations even and non-labored. Abdomen soft, flat, non-tender with positive bowel sounds. Positive pedal pulses with no edema. Able to ambulate with a steady gait.
--- NOTE | 2024-11-24 18:20 | PC.NURSE ---
Case management is at the bedside.
--- NOTE | 2024-11-24 21:04 | MHC.CM.ED ---
Addendum entered by Trang Cruz 11/24/24 21:23: Will refer to [facility]. Original Note: CM reviewed psych consult notes and OT assessment for MOCA and ACL. MOCA scoring 16/30-moderate impairment. ACL-4.4. PT recommendations: Daily safety checks, assistance with medication management, set-ups for ADL's, possibly adult daycare. Elle Kurtz industrial/organizational psychologist recommends discharge home with resperidol 5mg po BID and agrees with OT recommendations. She does not recommend inpatient psych. CM met with patient. She is conversant, cooperative, and has some memory deficits regarding current situation. She can tell CM all about her children and her husbands. She is a x2. She lost a child to cancer at 19. She has strong ovi in God. She tells CM her son, Dylan is a great help and she has little relationship with her other son. CM explained that because she has some memory loss, she may need additional help at home.She is agreeable. She is aware that CM will speak with her son Dylan. CM spoke with Dylan. CM reviewed OT and psych recommendations. He does acknowledge that psych did relay recommendations for safe care for his mother. Dylan is somewhat frustrated with his mother's declining mentation and increasing care needs. He tells CM that his Mother was at [facility] in the ED for 2 days and was discharged to [facility] for PT. She was there for 1 week and returned home on 11/16. She was discharged with [facility] and PT twice weekly, with shelter once a week. CM had a discussion with son regarding progression of dementia and that eventually she may not be able to live alone. Currently the recommendations from OT and psych would entail possibly him, other family and friends and possible hired home help. Explained that it would be daily, but not 24/. Dylan tells CM that his mother owns her condo, but his name is on it. It has not been 5 years and he is not forthcoming on how long the house has been in his name. He tells CM that his mother has a pension, social security and has monies in the bank. He was very bristly regarding having to use monies that his mother and father have earned. CM attempted to gently explain that his mother's money should be used to help care for her. Explained that it could be a combination of people. CM explained it would be safest for his mother to remain at home with daily check and assistance with ADL's if she needs it. Dylan will be in tomorrow to further discuss options for home care and agencies.
[2024-11-24] MEDS: Divalproex Sodium ER 250 MG TAB.ER.24H PO (21:27)
[2024-11-24 22:00] VITALS: BP 112/33; PULSE 67; RESP 14; TEMP 36.4; O2SAT 96
[2024-11-24] MEDS: Latanoprost 0.005 % Ophth Sol 2.5 ML DROPS 1 DROP EYE-BOTH (22:17)
--- NOTE | 2024-11-25 01:59 | PC.NURSE ---
Assumed care of patient at 1900. Patient pleasant and cooperative. Walks to bathroom with stand by assist. Administered night time medications, patient sleeping intermittently. Safety precautions in place , call kaminski within reach.
[2024-11-25 06:13] VITALS: BP 140/50; PULSE 62; RESP 14; TEMP 36.4; O2SAT 97
[2024-11-25 06:21] VITALS: BP 140/46; BP 151/57; BP 155/55; PULSE 61; PULSE 63; PULSE 69
[2024-11-25] MEDS: polyethylene glycoL 3350 17 GM POWD.PACK PO (10:34)
[2024-11-25] MEDS: Memantine HCl 10 MG TABLET PO (10:35)
[2024-11-25] MEDS: Cholecalciferol (Vitamin D3) 25 MCG TABLET 50 MCG PO (10:35)
[2024-11-25] MEDS: Ascorbic Acid 500 MG TABLET PO (10:35)
[2024-11-25] MEDS: Atorvastatin Calcium 80 MG TABLET PO (10:35)
[2024-11-25] MEDS: Aspirin 81 MG TAB.CHEW PO (10:35)
[2024-11-25] MEDS: Brimonidine Tartrate 0.2% Oph 5 ML BOTTLE 1 DROP EYE-BOTH (10:35)
[2024-11-25] MEDS: Folic Acid 1 MG TABLET PO (10:35)
--- NOTE | 2024-11-25 12:48 | MHC.CM.ED ---
Patient 's son at bedside. Met with patient and son Dylan. Information on private pay home services provided. [facility] aware patient will be d/c'ing home today. Dylan will transport patient home. Ana SAMS and Patricia CLINE aware. Continue to monitor for d/c needs.
[2024-11-25 13:18] VITALS: BP 146/82; PULSE 72; RESP 18; TEMP 36.6; O2SAT 98
== END 2024-11-25 13:26 | disposition home or self-care (01) ==
PROVIDERS: Physician Assistant; Social Worker; Emergency Provider Emergency Medicine
DX: R41.9 Unspecified symptoms and signs involving cognitive functions and awareness (principal); F05 Delirium due to known physiological condition; F03.C11 Unspecified dementia, severe, with agitation; F03.918 Unspecified dementia, unspecified severity, with other behavioral disturbance; R45.6 Violent behavior; Z79.899 Other long term (current) drug therapy; Z91.148 Patient's other noncompliance with medication regimen for other reason; Z51.81 Encounter for therapeutic drug level monitoring
CPT/HCPCS: 36415; 80053; 80143; 80179; 80307; 81001; 82140; 85025; 99285; S9485

== ENCOUNTER → 2024-11-21 16:20 | Outpatient (BNV) | payer MEDICARE, OTHER, SELFPAY | PROVIDERS: Emergency Provider Emergency Medicine; Visit Provider Social Worker | DX: F03.90 Unspecified dementia, unspecified severity, without behavioral disturbance, psychotic disturbance, mood disturbance, and anxiety (principal) | CPT/HCPCS: 99285 ==

== ENCOUNTER 2024-12-23 10:57 | Outpatient (AMB) | payer MEDICARE, OTHER, SELFPAY ==
--- NOTE | 2024-12-23 11:01 | A.OFFVIS_ITS ---
Intake Visit Reasons: 6m Accompanied by: Son Allergies meperidine (Demerol) Allergy (Unknown, Verified 12/23/24 11:16) Unknown morphine (MORPHINE) Allergy (Unknown, Verified 12/23/24 11:16) UNKNOWN oxycodone (Percocet) Allergy (Unknown, Verified 12/23/24 11:16) Unknown Sulfa (Sulfonamide Antibiotics) (SULFA(SULFONAMIDE ANTIBIOTICS)) Allergy (Unknown, Verified 12/23/24 11:16) UNKNOWN prednisone (PREDNISONE) Adverse Reaction (Unknown, Verified 12/23/24 11:16) UNKNOWN Medication List - Last Reconciled 12/23/24 by Veronika Wood, DARRIAN amlodipine 5 mg PO DAILY ascorbic acid (vitamin C) (Vitamin C) 500 mg PO BID aspirin 1 tab PO DAILY biotin 10 mg PO DAILY brimonidine 0.2% 1 drp ophthalmic (eye) BID calcium mg PO cholecalciferol (vitamin D3) 50 mcg PO DAILY divalproex ER 250 mg PO BEDTIME folic acid 1 mg PO QAM latanoprost 0.005% 1 drp ophthalmic (eye) BEDTIME meclizine 12.5 mg PO Q8H memantine 10 mg PO BID methotrexate sodium 12.5 mg PO QWEEK multivitamin 1 tab PO DAILY omega-3 fatty acids 1,000 mg PO BID polyethylene glycol 3350 (Miralax) 17 grams PO DAILY risperidone 0.25 mg PO BID rosuvastatin 20 mg PO DAILY timolol maleate 0.25% 1 drp ophthalmic (eye) DAILY HPI Comments Details: 74 yo woman with dementia with behavioral symptoms. She stopped taking memantine and Depakote at the beginning of 2024 as she wanted to see how she would do without medications. She returned in 10/2024 asking to restart medications. She felt her memory had gotten worse, she was getting angry more easily, and sleep was not so good. She was staying up until 1-2am cleaning and waking around 5-6am. She was restarted on memantine 10mg twice a day and Depakote 250mg at bedtime. She was here with her son. She was doing better since restarting medications. Memory seemed a bit better. She was started on risperidone about 3 weeks ago, and mood was much better with medication. She was living alone, but was planning to move in with her son. She had VNA and her son was also helping to manage medications. She was doing boarding kennel or cattery operator, cleaning and some cooking. She was not driving at this time and was having a hard time adjusting. She felt bored at home. She would fall asleep on the couch and had trouble sleeping in bed. She was hoping to go to [facility] soon. She had an appointment with psychiatrist later today. [facility] Medical History (Updated 12/23/24 @ 11:16 by Veronika Wood CNP) Iron deficiency anemia Osteoarthritis Bipolar disorder MCI (mild cognitive impairment) with memory loss Other Alzheimer's disease Encephalopathy RA (rheumatoid arthritis) Review of Systems Const Denies chills, Denies daytime sleepiness, Denies difficulty sleeping, Denies fatigue, Denies fever(s), Denies frequent falls, Denies headache(s), Denies increased appetite, Denies poor appetite, Denies snoring, Denies weakness, Denies weight gain and Denies weight loss Eyes Denies loss of vision ENT Denies vertigo, Denies dizziness and Denies headache(s) Card Denies chest pain at rest, Denies chest pain with activity, Denies leg edema and Denies palpitations Resp Denies snoring GI Denies constipation, Denies heartburn, Denies diarrhea and Denies nausea Denies urinary frequency, Denies urinary incontinence and Denies urinary urgency Musc Denies abnormal gait, Denies numbness and Denies tingling Skin/Breast Denies dry skin and Denies rash Neuro Denies abnormal gait, Denies vertigo, Denies dizziness, Denies frequent falls, Denies headache(s), Denies lack of coordination, Denies loss of vision, Reports memory loss, Denies numbness, Denies restless legs, Denies seizure-like activity, Denies tingling, Denies paresthesias, Denies tremor(s) and Denies weakness Psych Reports anxiety, Reports depression, Denies auditory hallucinations, Reports memory loss, Denies visual hallucinations and Denies suicidal ideation Endo Denies fatigue and Denies palpitations Physical Exam Const Other: General Appearance:? normal, in no acute distress. Skin:? no rashes, no significant birthmarks. Heart:? S1, S2 normal, no murmurs. Lungs:? clear anteriorly and posteriorly. Extremities:? no edema. Psych:? alert, cooperative with exam. Tearful at times. Neuro Other: Mental Status:?Normal attention and affect, although tearful at times. Cranial Nerves:?Pupils are equal, round and reactive to light. External occular muscles are intact. Visual silverio are full. Face is symmetrical. Facial sensations are normal. Tongue is midline. Palate elevates symmetrically. Shoulder shrugging is normal. Hearing to bedside conversation is normal. Motor Examination:?Normal muscle tone, bulk and strength,?Deep tendon reflexes are 2+,?Plantars are flexor.? Sensory Exam:?....? Coordination:?No ataxia,?no titubation.? Gait Exam: Within normal limits. Cerebellar Signs:?[id number] and [id number] is normal.? Extrapyramidal System:?No tremor, rigidity with normal facial expressions.? Pronator Drift:?Not present.? Involuntary Movements:?No tremors seen.? Speech:?Normal.? Assessment & Plan Assessment & Plan (1) MCI (mild cognitive impairment) with memory loss: Code(s): G31.84 - Mild cognitive impairment of uncertain or unknown etiology Category: Medical Plan: She was here with her son. Continue memantine 10mg 1 tablet twice a day. Continue Depakote ER 250mg 1 tablet at bedtime. Stay physically, socially, and intellectually active. (2) Bipolar disorder: Code(s): F31.9 - Bipolar disorder, unspecified Category: Medical Qualifiers: Active/Remission status: remission status unspecified Qualified Code(s): F31.9 - Bipolar disorder, unspecified Plan: Follow up with psychiatry as planned. Plan . Medications: New divalproex (Depakote) 250 mg PO BEDTIME 90 tabs 1RF 90 days memantine 10 mg PO BID 180 tabs 1RF 90 days Discontinued memantine Discontinued Reason: Order 10 mg PO BID divalproex ER Discontinued Reason: Order 250 mg PO BEDTIME Coding Level of Care Code Est Pt Level 4 (83762) Diagnoses MCI (mild cognitive impairment) with memory loss G31.84 Bipolar affective disorder, remission status unspecified F31.9 Active/Remission status: remission status unspecified
--- OUTSIDE RECORDS SUMMARY | 2024-12-23 11:35 | XMS_ITS ---
Author Name [facility] Organization Unknown Encounters Encounter Type Encounter Reason Primary Diagnosis Location Date Ambulatory [facility] 11/28/2024 Care Team Organization Name Specialty Phone Email Start Date End Da te [facility] 2024
--- OUTSIDE RECORDS SUMMARY | 2024-12-23 11:35 | XMS_ITS | Encounter Summary ---
Author Organization [facility] Address [address] [place] [address] Care Team Providers Care Teaseler Name Role Phone Alexy Wilcox MD Primary Care Provider [phone] Encounter Details Date Type Department Care Team (Late st Contact Info) Description 11/10/2024 Lab Requisition [facility] - Main Lab [address] [facility] [place] [address] Carolyne Russell MD [address] [place] [id number] Encounter for other general examination Social History Tobacco Use Types Packs/Day Years Used Date Smoking Tobacco: Every Day Cigarettes Last attempted to quit: 04/15/2016 Smokeless Tobacco: Never Alcohol Use Standard Drinks/Week Comments No 0 (1 standard drink = 0.6 oz pur e alcohol) Comments Unknown Sex and Gender Information Value Date Recorded Sex Assigned at Not on file Legal Sex Female 10:17 AM EST Gender Identity Not on file Sexual Orientation Not on file documented as of this encounter Plan of Treatment Not on file documented as of this encounter Procedures Procedure Name Priority Date/Time Associated Diagnosis Comments VALPROIC ACID LEVEL, TOTAL Routine 11/10/2024 5:30 AM EDT Encounter for other general examination documented in this encounter Results * (ABNORMAL) Valproic acid level, total (11/10/2024 5:30 AM EDT) Valproic Acid, Total 18(L) 50 - 100 mcg/mL LAB CHEMISTRY METHOD 11/10/2024 10:15 AM EDT [facility]) [facility] Blood Venous blood specimen / Unknown Venipuncture / Unknown 11/10/2024 5:30 AM EDT 11/10/2024 8:59 AM EDT us Carolyne Russell MD LAB BLOOD ORDERABLES Final Res ult [facility] ([facility]) [facility] [address] [place] [address], documented in this encounter Visit Diagnoses Diagnosis Encounter for other general examination documented in this encounter Care Teams Teaseler Relationship Specialty Start Date End Date Alexy Wilcox MD PCP - General Internal Medicine 04/18/21 documented as of this encounter
== END 2024-12-23 11:49 | disposition home or self-care (01) ==
LOC: HO.HSM 10:58
PROVIDERS: Visit Provider Registered Nurse
DX: G31.84 Mild cognitive impairment of uncertain or unknown etiology (principal); F31.9 Bipolar disorder, unspecified
CPT/HCPCS: 99214

== ENCOUNTER → 2024-12-23 10:57 | Outpatient (BNVA) | payer MEDICARE, OTHER, SELFPAY | PROVIDERS: Visit Provider Registered Nurse | DX: G31.84 Mild cognitive impairment of uncertain or unknown etiology (principal); F31.9 Bipolar disorder, unspecified | CPT/HCPCS: 99212 ==